=== PATIENT | male | born 1935 | race Caucasian/White ===

== ENCOUNTER 2017-04-23 16:25 | Emergency (ER) | payer MEDICARE, BC ==
[2017-04-23 16:49] VITALS: BP 164/99
--- NOTE | 2017-04-23 17:14 | EDM.PDOC ---
ED HPI GENERAL MEDICAL PROBLEM - General Chief Complaint: Upper Extremity Injury/Pain Stated Complaint: SMASHED HAND IN GARAGE DOOR Time Seen by Provider: 04/23/17 17:08 Source of Information: Reports: Patient, Family History Limitations: Reports: No Limitations - History of Present Illness INITIAL COMMENTS - FREE TEXT/NARRATIVE: Smashed his hand in the garage door yesterday about 10am crushing it under the pull down door. Was seen in the walk in clinic. No labs or xray done at that time. Does take coumadin. Hand with increasing pain and swelling today. Rates pain a 10 at times. Did try to wrap it and did apply ice. Onset: Gradual Onset Date: 04/22/17 Onset Time: 10:00 Duration: Getting Worse Location: Reports: Upper Extremity, Left Quality: Reports: Ache, Throbbing Severity: Moderate Improves with: Reports: Cold Therapy Worsens with: Reports: Movement Context: Reports: Trauma Associated Symptoms: Reports: No Other Symptoms left;hand Pain Score (Numeric/FACES): 6 - Related Data Allergies Allergy/AdvReac Type Severity Reaction Status Date / Time codeine Allergy Cannot Verified 06/07/14 07:53 Remember lisinopril Allergy Cannot Verified 06/07/14 07:53 Remember zolpidem tartrate Allergy Confusion Verified 02/12/16 09:43 [From Amy] Home Meds: Home Meds ALPRAZolam [Alprazolam] 0.25 mg PO DAILY 04/23/17 [History] Latanoprost [Latanoprost] 1 drop EYERT DAILY 04/23/17 [History] Losartan [Cozaar] 50 mg PO BEDTIME 04/23/17 [History] Metoprolol Tartrate 100 mg PO DAILY 04/23/17 [History] Timolol [Betimol 0.5% Ophth Soln] 1 drop EYERT DAILY 04/23/17 [History] Warfarin Sodium [Coumadin] 4.5 mg PO ASDIRECTED 04/23/17 [History] Warfarin [Coumadin] 3 mg PO ASDIRECTED 04/23/17 [History] traZODone 50 mg PO BEDTIME 04/23/17 [History] Past Medical History HEENT History: Reports: Head, Impaired Vision Cardiovascular History: Reports: High Cholesterol, Hypertension Respiratory History: Reports: SOB - Past Surgical History HEENT Surgical History: Reports: Tonsillectomy Musculoskeletal Surgical History: Reports: Knee Replacement Social & Family History - Tobacco Use Smoking Status *Q: Never Smoker - Caffeine Use Caffeine Use: Reports: Coffee - Recreational Drug Use Recreational Drug Use: No Review of Systems - Review of Systems Review Of Systems: See Below Constitutional: Reports: No Symptoms Ears: Reports: No Symptoms Nose: Reports: No Symptoms Mouth/Throat: Reports: No Symptoms Respiratory: Reports: No Symptoms Cardiovascular: Reports: No Symptoms Skin: Reports: Bruising (from left mid forearm down to finger tips), Other ( swelling to left hand) ED EXAM, GENERAL - Physical Exam Exam: See Below Exam Limited By: No Limitations General Appearance: Alert Respiratory/Chest: No Respiratory Distress, Lungs Clear, Normal Breath Sounds, No Accessory Muscle Use, Chest Non-Tender Cardiovascular: Normal Peripheral Pulses, Regular Rate, Rhythm, No Edema, No Gallop, No JVD, No Murmur, No Rub Extremities: Joint Swelling (left hand very swollen from blood pooling ), Limited Range of Motion Neurological: Alert, Oriented, CN II-XII Intact, Normal Cognition, Normal Gait, Normal Reflexes, No Motor/Sensory Deficits Skin Exam: Ecchymosis (bruising from mid forearm to finger tips) Course - Vital Signs Last Recorded V/S: Last Vital Signs Temp 98.7 F 04/23/17 16:47 Pulse 56 L 04/23/17 16:47 Resp 16 04/23/17 16:47 BP 164/99 H 04/23/17 16:47 Pulse Ox 97 04/23/17 16:47 - Orders/Labs/Meds Orders: Active Orders 24 hr Category Date Time Status Hand Comp Min 3V Lt [CR] Stat Exams 04/23/17 17:13 Taken Labs: Laboratory Tests 04/23/17 04/23/17 Range/Units 17:23 17:23 WBC 8.3 (4.5-11.0) K/uL RBC 4.45 (4.30-5.90) M/uL Hgb 13.8 (12.0-15.0) g/dL Hct 41.6 (40.0-54.0) % MCV 94 (80-98) fL MCH 31 (27-31) pg MCHC 33 (32-36) % Plt Count 151 (150-400) K/uL Neut % (Auto) 58 (36-66) % Lymph % (Auto) 32 (24-44) % [place] % (Auto) 8 H (2-6) % Eos % (Auto) 2 (2-4) % Baso % (Auto) 1 (0-1) % PT 52.1 H (9.5-12.0) sec INR 4.57 H* (0.80-1.20) Meds: Medications Discontinued Medications Generic Name Dose Route Start Last Admin Trade Name Hola PRN Reason Stop Dose Admin Bacitracin 1 dose 04/23/17 17:48 Bacitracin Oint 1 Gm TOP 04/23/17 17:49 ONETIME ONE Departure - Departure Time of Disposition: 17:53 Disposition: Home, Self-Care 01 Clinical Impression: Traumatic hematoma of left hand Qualifiers: Encounter type: subsequent encounter Qualified Code(s): S60.222D - Contusion of left hand, subsequent encounter - Discharge Information Instructions: Crush Injury, Fingers or Toes, [id number] Referrals: Art Stover MD [Primary Care Provider] - Forms: ED Department Discharge Additional Instructions: CBC WNL. INR 4.57. Xray without fracture. Pt reassured. Encouraged ice, elevation and compression as tolerated. Small wound cleaned and dressed with bacitracin today. Keep small scabbed area clean and apply bacitracin as needed. Rx for Hydrocodone 5/325 prn given. Please hold coumadin and repeat INR on Tuesday. Pt does have followup appointment with primary care on Tuesday. - Problem List & Annotations (1) Traumatic hematoma of left hand SNOMED Code(s): 3348019 Code(s): S60.222A - CONTUSION OF LEFT HAND, INITIAL ENCOUNTER Status: Acute Priority: Medium Current Visit: Yes Qualifiers: Encounter type: subsequent encounter Qualified Code(s): S60.222D - Contusion of left hand, subsequent encounter - Problem List Review Problem List Initiated/Reviewed/Updated: Yes - My Orders Last 24 Hours: My Active Orders 04/23/17 17:13 Hand Comp Min 3V Lt [CR] Stat - Assessment/Plan Last 24 Hours: My Active Orders 04/23/17 17:13 Hand Comp Min 3V Lt [CR] Stat
[2017-04-23] MEDS ORDERED: Bacitracin Oint 1 GM U/D Packet TOP ONE (17:48)
--- NOTE | 2017-04-25 09:25 | CR ---
Hand Comp Min 3V Lt INDICATION: crush injury to left hand on 04/22 FINDINGS: No acute fracture. Scattered degenerative changes most marked at the first CMC and third M CP joints. Chondrocalcinosis of the TFCC. Soft tissue swelling overlying the dorsum of the left.
== END 2017-04-23 18:20 | disposition home or self-care (01) ==
LOC: JP.ED 16:25
DX: S60.222D Contusion of left hand, subsequent encounter (principal); I10 Essential (primary) hypertension; E78.00 Pure hypercholesterolemia, unspecified; Z96.659 Presence of unspecified artificial knee joint; Z98.890 Other specified postprocedural states; Z79.01 Long term (current) use of anticoagulants; Z79.899 Other long term (current) drug therapy; Z88.5 Allergy status to narcotic agent; Z88.8 Allergy status to other drugs, medicaments and biological substances; W23.0XXD Caught, crushed, jammed, or pinched between moving objects, subsequent encounter
CPT/HCPCS: 36415; 73130-26-LT; 73130-LT; 85025; 85610; 99282; 99283

== ENCOUNTER 2017-09-24 13:34 | Emergency (ER) | payer MEDICARE, BC ==
--- NOTE | 2017-09-24 14:42 | EDM.PDOC ---
ED HPI GENERAL MEDICAL PROBLEM - General Chief Complaint: Gastrointestinal Problem Stated Complaint: NO STOOLS AND BLADDER TROUBLE Time Seen by Provider: 09/24/17 14:36 Source of Information: Reports: Patient, RN Notes Reviewed History Limitations: Reports: No Limitations - History of Present Illness INITIAL COMMENTS - FREE TEXT/NARRATIVE: 82-year-old gentleman presents to the emergency department today with complaint of abdominal pain, he states his biggest issue is that he has not had a bowel movement for 6 days and he is wondering if he did help with his constipation Lower Abdomen Pain Score (Numeric/FACES): 2 - Related Data Allergies Allergy/AdvReac Type Severity Reaction Status Date / Time codeine Allergy Cannot Verified 09/24/17 14:00 Remember lisinopril Allergy Cannot Verified 09/24/17 14:00 Remember zolpidem tartrate Allergy Confusion Verified 09/24/17 14:00 [From Amy] Home Meds: Home Meds ALPRAZolam [Alprazolam] 0.25 mg PO DAILY 04/23/17 [History] Latanoprost [Latanoprost] 1 drop EYERT DAILY 04/23/17 [History] Losartan [Cozaar] 50 mg PO BEDTIME 04/23/17 [History] Metoprolol Tartrate 100 mg PO DAILY 04/23/17 [History] Timolol [Betimol 0.5% Ophth Soln] 1 drop EYERT DAILY 04/23/17 [History] Warfarin Sodium [Coumadin] 4.5 mg PO ASDIRECTED 04/23/17 [History] Warfarin [Coumadin] 3 mg PO ASDIRECTED 04/23/17 [History] traZODone 50 mg PO BEDTIME 04/23/17 [History] Past Medical History HEENT History: Reports: Head, Impaired Vision Cardiovascular History: Reports: High Cholesterol, Hypertension Respiratory History: Reports: SOB Musculoskeletal History: Reports: Arthritis - Past Surgical History HEENT Surgical History: Reports: Tonsillectomy Musculoskeletal Surgical History: Reports: Knee Replacement Social & Family History - Tobacco Use Smoking Status *Q: Never Smoker - Caffeine Use Caffeine Use: Reports: Soda - Alcohol Use Days Per Week of Alcohol Use: 1 Number of Drinks Per Day: 1 Total Drinks Per Week: 1 - Recreational Drug Use Recreational Drug Use: No ED ROS GENERAL - Review of Systems Review Of Systems: See Below Constitutional: Reports: No Symptoms Respiratory: Reports: No Symptoms Cardiovascular: Reports: Dyspnea on Exertion GI/Abdominal: Reports: Abdominal Pain, Constipation : Reports: Urinary Retention ED EXAM, GI/ABD - Physical Exam Exam: See Below Exam Limited By: No Limitations General Appearance: Alert, WD/WN, No Apparent Distress Respiratory/Chest: No Respiratory Distress GI/Abdominal Exam: Normal Bowel Sounds, Soft, Non-Tender Course - Vital Signs Last Recorded V/S: Last Vital Signs Temp 97.3 F 09/24/17 13:58 Pulse 60 09/24/17 15:44 Resp 14 09/24/17 15:44 BP 148/90 H 09/24/17 15:44 Pulse Ox 96 09/24/17 15:44 - Orders/Labs/Meds Orders: Active Orders 24 hr Category Date Time Status Enema [RC] ASDIRECTED Care 09/24/17 14:40 Active Abdomen 1V Flat [CR] Stat Exams 09/24/17 14:40 Taken Departure - Departure Time of Disposition: 16:22 Disposition: Home, Self-Care 01 Condition: Good Clinical Impression: Functional constipation - Discharge Information Referrals: Art Stover MD [Primary Care Provider] - Forms: ED Department Discharge Additional Instructions: Recommend using a stool laxative such as MiraLAX which is [id number], Please followup with your primary care provider in 3-5 days if not better, please call return to the emergency department with worsening of symptoms. - My Orders Last 24 Hours: My Active Orders 09/24/17 14:40 Enema [RC] ASDIRECTED Abdomen 1V Flat [CR] Stat - Assessment/Plan Last 24 Hours: My Active Orders 09/24/17 14:40 Enema [RC] ASDIRECTED Abdomen 1V Flat [CR] Stat Plan: Assessment Acuity = acute Site and laterality = functional constipation Etiology = slow transit time Manifestations = none Location of injury = Home Lab values = plain film the abdomen shows large amount of stool, official read radiology is pending Plan He had good relief from the enema provided in emergency department recommend stool softeners at home follow-up with primary care 3-5 days for reevaluation if no improvement Patient was in agreement with the plan all questions were answered, they were instructed to return to the emergency department or call for worsening symptoms. This note was dictated using [email or web address]. voice recognition software please call with any questions.
[2017-09-24 15:45] VITALS: BP 148/90
--- NOTE | 2017-09-26 09:45 | CR ---
Abdomen 1V Flat INDICATION: pain FINDINGS: Nonspecific bowel gas pattern. Scattered stool and gas within the colon and rectum. Degener ative changes lumbar spine.
== END 2017-09-24 16:26 | disposition home or self-care (01) ==
LOC: JP.ED 13:34
DX: K59.04 Chronic idiopathic constipation (principal); Z88.5 Allergy status to narcotic agent; Z88.8 Allergy status to other drugs, medicaments and biological substances; Z79.899 Other long term (current) drug therapy; Z79.01 Long term (current) use of anticoagulants
CPT/HCPCS: 74000; 74000-26; 99283; 99284

== ENCOUNTER 2018-08-17 19:50 | Emergency (ER) | payer MEDICARE, BC ==
--- NOTE | 2018-08-17 21:00 | EDM.PDOC ---
ED HPI GENERAL MEDICAL PROBLEM - General Chief Complaint: Fever Stated Complaint: FEVER Time Seen by Provider: 08/17/18 20:36 Source of Information: Reports: Patient, Family, RN Notes Reviewed History Limitations: Reports: No Limitations - History of Present Illness INITIAL COMMENTS - FREE TEXT/NARRATIVE: 83-year-old gentleman presents emergency department today with complaint of fever and chills, he states this all started today he denies any sick contacts the only other symptoms he has is frequency with urination - Related Data Allergies Allergy/AdvReac Type Severity Reaction Status Date / Time codeine Allergy Cannot Verified 09/24/17 14:00 Remember lisinopril Allergy Cannot Verified 09/24/17 14:00 Remember zolpidem tartrate Allergy Confusion Verified 09/24/17 14:00 [From Amy] Home Meds: Home Meds ALPRAZolam [Alprazolam] 0.25 mg PO DAILY 04/23/17 [History] Losartan [Cozaar] 75 mg PO DAILY 04/23/17 [History] Warfarin Sodium [Coumadin] 4.5 mg PO ASDIRECTED 04/23/17 [History] Warfarin [Coumadin] 3 mg PO ASDIRECTED 04/23/17 [History] traZODone 25 mg PO BEDTIME 04/23/17 [History] Albuterol Sulfate [Proair Hfa] 8.5 gm IH PRN 08/17/18 [History] Esomeprazole Magnesium [Nexium] 40 mg PO DAILY 08/17/18 [History] Fluticasone Propionate [Flonase] 2 spray NASBOTH DAILY 08/17/18 [History] Metoprolol Succinate [Toprol XL 100mg] 100 mg PO DAILY 08/17/18 [History] Polyethylene Glycol 3350 [MiraLAX] 17 gm PO ASDIRECTED PRN 08/17/18 [History] Tamsulosin HCl [Flomax] 0.4 mg PO DAILY 08/17/18 [History] Past Medical History HEENT History: Reports: Head, Impaired Vision Cardiovascular History: Reports: High Cholesterol, Hypertension Respiratory History: Reports: SOB Genitourinary History: Reports: BPH Musculoskeletal History: Reports: Arthritis Dermatologic History: Reports: Other (See Below) Other Dermatologic History: open wound of auricle of right ear w/out complication, has appt w/ Dr. Tsang - Past Surgical History HEENT Surgical History: Reports: Tonsillectomy Musculoskeletal Surgical History: Reports: Knee Replacement Social & Family History - Tobacco Use Smoking Status *Q: Never Smoker Second Hand Smoke Exposure: No - Caffeine Use Caffeine Use: Reports: Coffee - Recreational Drug Use Recreational Drug Use: No ED ROS GENERAL - Review of Systems Review Of Systems: See Below Constitutional: Reports: Fever, Chills HEENT: Reports: No Symptoms Respiratory: Reports: No Symptoms Cardiovascular: Reports: No Symptoms GI/Abdominal: Reports: No Symptoms : Reports: Frequency, Urinary Retention Musculoskeletal: Reports: No Symptoms Skin: Reports: No Symptoms ED EXAM, GENERAL - Physical Exam Exam: See Below Free Text/Narrative:: General: Male, not in any distress, alert and oriented x3 HEENT: head is atraumatic normocephalic, eyes pupils equal round reactive to light, sclera clear no conjunctivitis appreciated. Ears tympanic membranes clear and escamilal landmarks and light reflex are present bilaterally canals are clear. Nose no septal deviation, nares are clear, no blood present. Mouth mucosa is moist and pink no erythema or exudate noted in soft palate, tongue is midline uvula is midline, dentition is intact. Neck: Supple no thyromegaly no tracheal deviation. Nodes: Cervical nodes subclavicular nodes nontender no palpable lymphadenopathy noted. Lungs: clear to auscultation bilaterally with symmetrical respirations, no adventitious noise appreciated. CV: Regular rate and rhythm S1 and S2 appreciated no murmurs rubs or gallops noted. Abdomen: Soft, nontender, no palpable masses or organomegaly appreciated, no distention no guarding bowel sounds are present, . Neuro: Cranial nerves II through XII grossly intact Skin: Warm and dry, intact Extremities: No lower extremity edema appreciated, Course - Vital Signs Last Recorded V/S: Last Vital Signs Temp 100.8 F H 08/17/18 22:19 Pulse 80 08/17/18 22:19 Resp 12 08/17/18 22:19 BP 130/88 08/17/18 22:19 Pulse Ox 94 L 08/17/18 22:19 - Orders/Labs/Meds Labs: Laboratory Tests 08/17/18 08/17/18 08/17/18 Range/Units 20:44 20:44 20:44 WBC 12.8 H (4.5-11.0) K/uL RBC 4.45 (4.30-5.90) M/uL Hgb 14.0 (12.0-15.0) g/dL Hct 41.8 (40.0-54.0) % MCV 94 (80-98) fL MCH 32 H (27-31) pg MCHC 34 (32-36) % Plt Count 117 L (150-400) K/uL Neut % (Auto) 83 H (36-66) % Lymph % (Auto) 10 L (24-44) % [place] % (Auto) 7 H (2-6) % Eos % (Auto) 0 L (2-4) % Baso % (Auto) 0 (0-1) % PT (9.5-12.0) sec INR (0.80-1.20) Sodium 139 L (140-148) mmol/L Potassium 3.7 (3.6-5.2) mmol/L Chloride 103 (100-108) mmol/L Carbon Dioxide 26 (21-32) mmol/L Anion Gap 13.7 (5.0-14.0) mmol/L BUN 15 (7-18) mg/dL Creatinine 0.9 (0.8-1.3) mg/dL Est Cr Clr Drug Dosing TNP Estimated GFR (MDRD) > 60 (>60) Glucose 134 H (74-106) mg/dL Lactic Acid 1.6 (0.4-2.0) mmol/L Calcium 8.2 L (8.5-10.1) mg/dL Total Bilirubin 1.0 (0.2-1.0) mg/dL AST 20 (15-37) U/L ALT 23 (12-78) U/L Alkaline Phosphatase 91 (46-116) U/L Total Protein 7.1 (6.4-8.2) g/dL Albumin 3.4 (3.4-5.0) g/dL Globulin 3.7 H (2.3-3.5) g/dL Albumin/Globulin Ratio 0.9 L (1.2-2.2) Urine Color Urine Appearance Urine pH (4.5-8.0) Ur Specific [place] (1.008-1.030) Urine Protein (NEGATIVE) mg/dL Urine Glucose (UA) (NEGATIVE) mg/dL Urine Ketones (NEGATIVE) mg/dL Urine Occult Blood (NEGATIVE) Urine Nitrite (NEGAITVE) Urine Bilirubin (NEGATIVE) Urine Urobilinogen (NORMAL) mg/dL Ur Leukocyte Esterase (NEGATIVE) Urine RBC (0-5) Urine WBC (0-5) Ur Epithelial Cells Amorphous Sediment Urine Bacteria Urine Mucus 08/17/18 08/17/18 Range/Units 21:17 22:08 WBC (4.5-11.0) K/uL RBC (4.30-5.90) M/uL Hgb (12.0-15.0) g/dL Hct (40.0-54.0) % MCV (80-98) fL MCH (27-31) pg MCHC (32-36) % Plt Count (150-400) K/uL Neut % (Auto) (36-66) % Lymph % (Auto) (24-44) % [place] % (Auto) (2-6) % Eos % (Auto) (2-4) % Baso % (Auto) (0-1) % PT 21.3 H (9.5-12.0) sec INR 2.01 H D (0.80-1.20) Sodium (140-148) mmol/L Potassium (3.6-5.2) mmol/L Chloride (100-108) mmol/L Carbon Dioxide (21-32) mmol/L Anion Gap (5.0-14.0) mmol/L BUN (7-18) mg/dL Creatinine (0.8-1.3) mg/dL Est Cr Clr Drug Dosing Estimated GFR (MDRD) (>60) Glucose (74-106) mg/dL Lactic Acid (0.4-2.0) mmol/L Calcium (8.5-10.1) mg/dL Total Bilirubin (0.2-1.0) mg/dL AST (15-37) U/L ALT (12-78) U/L Alkaline Phosphatase (46-116) U/L Total Protein (6.4-8.2) g/dL Albumin (3.4-5.0) g/dL Globulin (2.3-3.5) g/dL Albumin/Globulin Ratio (1.2-2.2) Urine Color Yellow Urine Appearance Clear Urine pH 5.0 (4.5-8.0) Ur Specific [place] 1.010 (1.008-1.030) Urine Protein Negative (NEGATIVE) mg/dL Urine Glucose (UA) Normal (NEGATIVE) mg/dL Urine Ketones Negative (NEGATIVE) mg/dL Urine Occult Blood Moderate (NEGATIVE) Urine Nitrite Negative (NEGAITVE) Urine Bilirubin Negative (NEGATIVE) Urine Urobilinogen Normal (NORMAL) mg/dL Ur Leukocyte Esterase Negative (NEGATIVE) Urine RBC 5-10 H (0-5) Urine WBC Not seen (0-5) Ur Epithelial Cells Not seen Amorphous Sediment Not seen Urine Bacteria Rare Urine Mucus Rare Meds: Medications Discontinued Medications Generic Name Dose Route Start Last Admin Trade Name Freq PRN Reason Stop Dose Admin Acetaminophen 650 mg 08/17/18 21:46 08/17/18 21:59 Tylenol PO 08/17/18 21:47 650 mg NOW ONE Administration Ibuprofen 600 mg 08/17/18 21:17 08/17/18 22:11 Motrin PO 08/17/18 21:18 Not Given ONETIME ONE Departure - Departure Time of Disposition: 22:58 Disposition: Home, Self-Care 01 Condition: Good Clinical Impression: Viral syndrome - Discharge Information Referrals: Art Stover MD [Primary Care Provider] - Forms: ED Department Discharge Additional Instructions: Please followup with your primary care provider in 3-5 days if not better, please call return to the emergency department with worsening of symptoms. - Assessment/Plan Plan: assessment viral syndrome Plan symptomatic care
[2018-08-17] MEDS ORDERED: Ibuprofen 600 MG Tab PO ONE (21:17)
[2018-08-17] MEDS ORDERED: Acetaminophen 325 MG Tab PO ONE (21:46)
[2018-08-17 22:20] VITALS: BP 130/88
== END 2018-08-17 23:00 | disposition home or self-care (01) ==
LOC: JP.ED 19:50
DX: B34.9 Viral infection, unspecified (principal); E78.00 Pure hypercholesterolemia, unspecified; I10 Essential (primary) hypertension; Z88.5 Allergy status to narcotic agent; Z88.8 Allergy status to other drugs, medicaments and biological substances; Z79.899 Other long term (current) drug therapy; Z79.01 Long term (current) use of anticoagulants
CPT/HCPCS: 36415; 80053; 81001; 83605; 85025; 85610; 87804; 99284; A9270

== ENCOUNTER 2019-01-30 10:48 | Emergency (ER) | payer MEDICARE, BC ==
[2019-01-30 11:21] VITALS: BP 152/77
--- NOTE | 2019-01-30 11:57 | EDM.PDOC ---
<Rae Martinez - Last Filed: 01/30/19 12:15> ED HPI GENERAL MEDICAL PROBLEM - General Chief Complaint: Respiratory Problem Stated Complaint: SHORT OF BREATH,WEAKNESS Time Seen by Provider: 01/30/19 11:45 Source of Information: Reports: Patient, Significant Other History Limitations: Reports: No Limitations - History of Present Illness INITIAL COMMENTS - FREE TEXT/NARRATIVE: Rojelio Mesa is an 83 year old male who reports to the ED, accompanied by his for increased shortness of breath and weakness. His states that she wanted him to be evaluated to due his balance disturbance and weakness with the ice outside and his risk of falling. She states this morning he was lethargic and it brought her concerns. He has been going to PT for treatment of vertigo which he says has been improving his symptoms. He states that he does not necessarily feel an increased shortness of breath or weakness. He reports chronic constipation but denies a dark stool or blood. Further symptoms are denied at this time. - Related Data Allergies Allergy/AdvReac Type Severity Reaction Status Date / Time codeine Allergy Cannot Verified 01/30/19 11:19 Remember lisinopril Allergy Cannot Verified 01/30/19 11:19 Remember zolpidem tartrate Allergy Confusion Verified 01/30/19 11:19 [From Amy] Home Meds: Home Meds ALPRAZolam [Alprazolam] 0.25 mg PO DAILY 04/23/17 [History] Losartan [Cozaar] 75 mg PO DAILY 04/23/17 [History] Warfarin Sodium [Coumadin] 4.5 mg PO ASDIRECTED 04/23/17 [History] Warfarin [Coumadin] 3 mg PO ASDIRECTED 04/23/17 [History] traZODone 25 mg PO BEDTIME 04/23/17 [History] Albuterol Sulfate [Proair Hfa] 8.5 gm IH PRN 08/17/18 [History] Esomeprazole Magnesium [Nexium] 40 mg PO DAILY 08/17/18 [History] Fluticasone Propionate [Flonase] 2 spray NASBOTH DAILY 08/17/18 [History] Metoprolol Succinate [Toprol XL 100mg] 100 mg PO DAILY 08/17/18 [History] Polyethylene Glycol 3350 [MiraLAX] 17 gm PO ASDIRECTED PRN 08/17/18 [History] Tamsulosin HCl [Flomax] 0.4 mg PO DAILY 08/17/18 [History] Past Medical History HEENT History: Reports: Head, Impaired Vision Cardiovascular History: Reports: Afib, High Cholesterol, Hypertension Respiratory History: Reports: SOB Genitourinary History: Reports: BPH Musculoskeletal History: Reports: Arthritis Dermatologic History: Reports: Other (See Below) Other Dermatologic History: open wound of auricle of right ear w/out complication, has appt w/ Dr. Tsang - Past Surgical History HEENT Surgical History: Reports: Tonsillectomy Musculoskeletal Surgical History: Reports: Knee Replacement Social & Family History - Tobacco Use Smoking Status *Q: Never Smoker - Caffeine Use Caffeine Use: Reports: Coffee - Recreational Drug Use Recreational Drug Use: No ED ROS GENERAL - Review of Systems Review Of Systems: ROS reveals no pertinent complaints other than HPI. ED EXAM, GENERAL - Physical Exam Exam: See Below Exam Limited By: No Limitations General Appearance: Alert, WD/WN, No Apparent Distress Ears: Normal External Exam Nose: Normal Inspection, Normal Mucosa Throat/Mouth: Normal Inspection, Normal Lips, Normal Gums, Normal Oropharynx, No Airway Compromise Head: Atraumatic, Normocephalic Neck: Normal Inspection, Supple, Non-Tender Respiratory/Chest: No Respiratory Distress, Lungs Clear, Normal Breath Sounds, No Accessory Muscle Use Cardiovascular: Systolic Murmur, Other (Atrial Fibrillation ) GI/Abdominal: Soft, Non-Tender, No Distention Extremities: Normal Inspection, Normal Range of Motion, Other (Mild swelling on left foot which states has been present since his foot injury ) Neurological: Alert, Oriented, Normal Cognition, No Motor/Sensory Deficits Psychiatric: Normal Affect, Normal Mood Skin Exam: Warm, Intact, Normal Color, No Rash Course - Vital Signs Last Recorded V/S: Last Vital Signs Temp 95.7 F 01/30/19 11:26 Pulse 51 L 01/30/19 11:26 Resp 16 01/30/19 11:26 BP 152/77 H 01/30/19 11:26 Pulse Ox 95 01/30/19 11:26 Departure - Departure Time of Disposition: 12:15 Disposition: Home, Self-Care 01 Clinical Impression: Weakness, Dizziness - Discharge Information Instructions: Weakness, [id number] Referrals: PCP,None [Primary Care Provider] - Forms: ED Department Discharge Care Plan Goals: Continue any current medications, activity and diet as tolerated. Consider rechecking in 3-4 days if not improving satisfactorily or anytime sooner if worsening or concerns. Watch out for the ice <Art Jesus - Last Filed: 01/30/19 13:19> Departure - Departure Condition: Good
== END 2019-01-30 12:22 | disposition home or self-care (01) ==
LOC: JP.ED 10:48
DX: R53.1 Weakness (principal); R42 Dizziness and giddiness; R06.02 Shortness of breath; I48.91 Unspecified atrial fibrillation; I10 Essential (primary) hypertension; E78.00 Pure hypercholesterolemia, unspecified; Z79.899 Other long term (current) drug therapy; Z88.5 Allergy status to narcotic agent; Z88.8 Allergy status to other drugs, medicaments and biological substances
CPT/HCPCS: 99282; 99284

== ENCOUNTER 2019-02-18 11:46 | Emergency (ER) | payer MEDICARE, BC ==
[2019-02-18 12:35] VITALS: BP 144/75
--- NOTE | 2019-02-18 13:03 | EDM.PDOC ---
ED HPI GENERAL MEDICAL PROBLEM - General Chief Complaint: General Stated Complaint: DIZZY Time Seen by Provider: 02/18/19 12:50 Source of Information: Reports: Patient, Family History Limitations: Reports: No Limitations - History of Present Illness Onset: Gradual (over past three to four months) Quality: Reports: Stabbing (just intermittent) Severity: Mild Improves with: Reports: None Worsens with: Reports: Movement ( states is more unstable on his feet and she worries that he seems more 'tippy' outside) Associated Symptoms: Reports: No Other Symptoms - Related Data Allergies Allergy/AdvReac Type Severity Reaction Status Date / Time codeine Allergy Cannot Verified 01/30/19 11:19 Remember lisinopril Allergy Cannot Verified 01/30/19 11:19 Remember zolpidem tartrate Allergy Confusion Verified 01/30/19 11:19 [From Amy] Home Meds: Home Meds ALPRAZolam [Alprazolam] 0.25 mg PO DAILY 04/23/17 [History] Losartan [Cozaar] 75 mg PO DAILY 04/23/17 [History] Warfarin Sodium [Coumadin] 4.5 mg PO ASDIRECTED 04/23/17 [History] Warfarin [Coumadin] 3 mg PO ASDIRECTED 04/23/17 [History] traZODone 25 mg PO BEDTIME 04/23/17 [History] Albuterol Sulfate [Proair Hfa] 8.5 gm IH PRN 08/17/18 [History] Esomeprazole Magnesium [Nexium] 40 mg PO DAILY 08/17/18 [History] Fluticasone Propionate [Flonase] 2 spray NASBOTH DAILY 08/17/18 [History] Metoprolol Succinate [Toprol XL 100mg] 100 mg PO DAILY 08/17/18 [History] Polyethylene Glycol 3350 [MiraLAX] 17 gm PO ASDIRECTED PRN 08/17/18 [History] Tamsulosin HCl [Flomax] 0.4 mg PO DAILY 08/17/18 [History] Past Medical History HEENT History: Reports: Head, Impaired Vision Cardiovascular History: Reports: Afib, High Cholesterol, Hypertension Respiratory History: Reports: SOB Genitourinary History: Reports: BPH Musculoskeletal History: Reports: Arthritis Dermatologic History: Reports: Other (See Below) Other Dermatologic History: auricle of right ear w/out complication, has appt w / Dr. Tsang - Past Surgical History HEENT Surgical History: Reports: Tonsillectomy Musculoskeletal Surgical History: Reports: Knee Replacement Social & Family History - Tobacco Use Smoking Status *Q: Never Smoker - Caffeine Use Caffeine Use: Reports: Coffee - Recreational Drug Use Recreational Drug Use: No ED ROS GENERAL - Review of Systems Review Of Systems: See Below Constitutional: Reports: Chills ( states that he has teeth chattering chills of last few weeks) HEENT: Reports: No Symptoms Respiratory: Reports: No Symptoms (denies shortness of breath) Cardiovascular: Reports: No Symptoms Endocrine: Reports: No Symptoms GI/Abdominal: Reports: Constipation (takes miralax daily per ) : Reports: No Symptoms Musculoskeletal: Reports: Other (more unstable, even in house (per )) Skin: Reports: No Symptoms Neurological: Reports: Dizziness (no change in dizziness, being treated in outpatient therapy) Psychiatric: Reports: No Symptoms Hematologic/Lymphatic: Reports: No Symptoms, Other (followed with Coumadin clinic) Immunologic: Reports: No Symptoms ED EXAM, GENERAL - Physical Exam Exam: See Below Exam Limited By: No Limitations General Appearance: Alert, WD/WN, No Apparent Distress Eye Exam: Bilateral Eye: EOMI, PERRL Ears: Normal External Exam, Normal Canal, Hearing Grossly Normal, Normal TMs Nose: Normal Inspection, Normal Mucosa, No Blood Throat/Mouth: Normal Inspection, Normal Teeth, No Airway Compromise Head: Atraumatic, Normocephalic Neck: Normal Inspection, Non-Tender Respiratory/Chest: No Respiratory Distress, Lungs Clear, Normal Breath Sounds, No Accessory Muscle Use, Chest Non-Tender Cardiovascular: Normal Peripheral Pulses, No JVD, No Murmur, No Rub Peripheral Pulses: 1+: Posterior Tibial (L), Posterior Tibial (R) GI/Abdominal: Normal Bowel Sounds, Soft, Non-Tender, No Distention, No Abnormal Bruit Back Exam: Normal Inspection, Full Range of Motion Extremities: Normal Inspection, Normal Range of Motion, Non-Tender, Other ( pedal edema left ankle) Neurological: Alert, Oriented, Normal Cognition Psychiatric: Normal Affect, Normal Mood Skin Exam: Warm, Dry, Intact, Normal Color, No Rash Lymphatic: No Adenopathy Course - Vital Signs Last Recorded V/S: Last Vital Signs Temp 35.8 C 04/07/19 12:08 Pulse 61 02/18/19 12:08 Resp 16 02/18/19 12:08 BP 144/75 H 02/18/19 12:08 Pulse Ox 96 02/18/19 12:08 - Orders/Labs/Meds Orders: CBC, TSH, UA ordered Labs: Laboratory Tests 02/18/19 02/18/19 02/18/19 Range/Units 13:06 13:06 13:30 WBC 16.0 H (4.5-11.0) K/uL RBC 4.16 L (4.30-5.90) M/uL Hgb 12.7 (12.0-15.0) g/dL Hct 38.6 L (40.0-54.0) % MCV 93 (80-98) fL MCH 31 (27-31) pg MCHC 33 (32-36) % Plt Count 144 L (150-400) K/uL Sodium 137 L (140-148) mmol/L Potassium 3.9 (3.6-5.2) mmol/L Chloride 102 (100-108) mmol/L Carbon Dioxide 29 (21-32) mmol/L Anion Gap 9.9 (5.0-14.0) mmol/L BUN 13 (7-18) mg/dL Creatinine 0.9 (0.8-1.3) mg/dL Est Cr Clr Drug Dosing 65.07 mL/min Estimated GFR (MDRD) > 60 (>60) Glucose 106 (74-106) mg/dL Calcium 8.7 (8.5-10.1) mg/dL TSH, Ultra Sensitive 2.509 (0.358-3.740) uIU/mL Urine Color Yellow Urine Appearance Clear Urine pH 7.0 (4.5-8.0) Ur Specific [place] 1.005 L (1.008-1.030) Urine Protein Negative (NEGATIVE) mg/dL Urine Glucose (UA) Normal (NEGATIVE) mg/dL Urine Ketones Negative (NEGATIVE) mg/dL Urine Occult Blood Trace (NEGATIVE) Urine Nitrite Negative (NEGAITVE) Urine Bilirubin Negative (NEGATIVE) Urine Urobilinogen Normal (NORMAL) mg/dL Ur Leukocyte Esterase Negative (NEGATIVE) Urine RBC 0-5 (0-5) Urine WBC Not seen (0-5) Ur Epithelial Cells Not seen Amorphous Sediment Few Urine Bacteria Not seen Urine Mucus Not seen Departure - Departure Time of Disposition: 14:30 Disposition: Home, Self-Care 01 Condition: Good Clinical Impression: Weakness, Dizziness - Discharge Information *PRESCRIPTION DRUG MONITORING PROGRAM REVIEWED*: No *COPY OF PRESCRIPTION DRUG MONITORING REPORT IN PATIENT BARBIE: No Instructions: Weakness, [id number] Referrals: Art Stover MD [Primary Care Provider] - Forms: ED Department Discharge Additional Instructions: Discussed with patient and that there are no acute findings to support increased WBC count, urinalysis normal and chest exray showed no pleural effusion or consolidation. We suggest the increased count warrants further follow up with PCP in the next day or two. To return to ED if experiencing shortness of breath or acute situation.
--- NOTE | 2019-02-18 14:23 | CRLCR ---
INDICATION: Fever TECHNIQUE: Chest 2 views. COMPARISON: None FINDINGS: Cardiomediastinal silhouette: Top-normal size heart. Tortuous thoracic aorta, with atherosclerotic calcification of the aortic arch. Lungs and pleural spaces: Linear subsegmental atelectasis at the left lung base. No focal consolidation. No pulmonary edema. No pleural effusion or pneumothorax. Bones and soft tissues: Within normal limits. IMPRESSION: No acute pulmonary process. Dictated by Allison Gaona MD @ 02/18/2019 2:22:27 PM Dictated by: Allison Gaona MD @ 02/18/2019 14:22:33 (Electronically Signed)
== END 2019-02-18 14:45 | disposition home or self-care (01) ==
LOC: JP.ED 11:46
DX: R53.1 Weakness (principal); R42 Dizziness and giddiness; I10 Essential (primary) hypertension; E78.00 Pure hypercholesterolemia, unspecified; I48.91 Unspecified atrial fibrillation; Z79.899 Other long term (current) drug therapy; Z88.5 Allergy status to narcotic agent; Z88.8 Allergy status to other drugs, medicaments and biological substances
CPT/HCPCS: 36415; 71046; 80048; 81001; 84443; 85027; 99284-25

== ENCOUNTER 2019-02-19 06:15 | Observation (INO) | payer MEDICARE, BC ==
--- NOTE | 2019-02-19 06:48 | EDM.PDOC ---
<Art Jesus - Last Filed: 02/19/19 07:01> ED HPI GENERAL MEDICAL PROBLEM - General Chief Complaint: Lower Extremity Injury/Pain Stated Complaint: FALL Time Seen by Provider: 02/19/19 06:30 Source of Information: Reports: Patient, EMS, Family History Limitations: Reports: No Limitations - History of Present Illness INITIAL COMMENTS - FREE TEXT/NARRATIVE: 83-year-old male with chronic vertigo and a recent right foot or ankle injury was in the emergency room yesterday for 4 hours and had an extensive workup for weakness. He was eventually sent home, but is not doing well. The combination of weakness, dizziness, and right foot pain precludes him from walking or getting around the house. This morning he was standing and holding onto the wall when he was unable to take another step and just collapsed to the ground. He couldn't get up so she called an ambulance. She just doesn't know how she can take him home. Onset: Unknown/Unsure Location: Reports: Lower Extremity, Right Worsens with: Reports: Other (Weightbearing, walking), Movement Associated Symptoms: Reports: Weakness, Other (Dizziness) right ankle/foot Pain Score (Numeric/FACES): 4 - Related Data Allergies Allergy/AdvReac Type Severity Reaction Status Date / Time codeine Allergy Cannot Verified 02/19/19 06:21 Remember lisinopril Allergy Cannot Verified 02/19/19 06:21 Remember zolpidem tartrate Allergy Confusion Verified 02/19/19 06:21 [From Amy] Home Meds: Home Meds ALPRAZolam [Alprazolam] 0.25 mg PO DAILY 04/23/17 [History] Losartan [Cozaar] 75 mg PO DAILY 04/23/17 [History] Warfarin Sodium [Coumadin] 4.5 mg PO ASDIRECTED 04/23/17 [History] Warfarin [Coumadin] 3 mg PO ASDIRECTED 04/23/17 [History] traZODone 50 mg PO BEDTIME 04/23/17 [History] Albuterol Sulfate [Proair Hfa] 1 - 2 puff IH Q4H PRN 08/17/18 [History] Fluticasone Propionate [Flonase] 2 spray NASBOTH DAILY 08/17/18 [History] Metoprolol Succinate [Toprol XL 100mg] 100 mg PO DAILY 08/17/18 [History] Polyethylene Glycol 3350 [MiraLAX] 17 gm PO ASDIRECTED PRN 08/17/18 [History] Tamsulosin HCl [Flomax] 0.4 mg PO DAILY 08/17/18 [History] Past Medical History HEENT History: Reports: Head, Impaired Vision Cardiovascular History: Reports: Afib, High Cholesterol, Hypertension Respiratory History: Reports: SOB Genitourinary History: Reports: BPH Musculoskeletal History: Reports: Arthritis Dermatologic History: Reports: Other (See Below) Other Dermatologic History: auricle of right ear w/out complication, has appt w / Dr. Tsang - Past Surgical History HEENT Surgical History: Reports: Tonsillectomy Musculoskeletal Surgical History: Reports: Knee Replacement Social & Family History - Tobacco Use Smoking Status *Q: Never Smoker - Caffeine Use Caffeine Use: Reports: Coffee - Recreational Drug Use Recreational Drug Use: No Review of Systems - Review of Systems Review Of Systems: See Below Constitutional: Denies: Fever Eyes: Reports: No Symptoms Ears: Reports: Other (Hard of hearing) Respiratory: Reports: No Symptoms Cardiovascular: Reports: No Symptoms GI/Abdominal: Reports: No Symptoms Musculoskeletal: Reports: Foot Pain Skin: Reports: Bruising (Tends to bruise easy) Neurological: Denies: Headache Psychiatric: Reports: No Symptoms ED EXAM, GENERAL - Physical Exam Exam: See Below Exam Limited By: No Limitations General Appearance: Alert, No Apparent Distress Eye Exam: Bilateral Eye: EOMI Neck: Supple, Non-Tender Respiratory/Chest: No Respiratory Distress Cardiovascular: Irregularly Irregular GI/Abdominal: Soft, Non-Tender Extremities: Other (Right foot has some mild to moderate swelling over the top of the foot near the ankle, and tenderness to palpation there is no crepitus or significant deformity) Skin Exam: Warm, Dry Course - Vital Signs Last Recorded V/S: Last Vital Signs Temp 37.6 C 02/19/19 06:18 Pulse 77 02/19/19 09:29 Resp 20 02/19/19 06:18 BP 161/99 H 02/19/19 09:29 Pulse Ox 94 L 02/19/19 06:18 - Orders/Labs/Meds Orders: Active Orders 24 hr Category Date Time Status Sodium Chloride 0.9% [Normal Saline] 1,000 ml Med 02/19/19 09:00 Active IV ASDIRECTED Medication Orders Sodium Chloride (Normal Saline) 1,000 mls @ 999 mls/hr IV ASDIRECTED JOHN Last Admin: 02/19/19 09:34 Dose: 999 mls/hr Labs: Laboratory Tests 02/19/19 02/19/19 02/19/19 Range/Units 07:44 07:44 07:50 WBC 10.2 (4.5-11.0) K/uL RBC 4.27 L (4.30-5.90) M/uL Hgb 13.1 (12.0-15.0) g/dL Hct 40.1 (40.0-54.0) % MCV 94 (80-98) fL MCH 31 (27-31) pg MCHC 33 (32-36) % Plt Count 125 L (150-400) K/uL Neut % (Auto) 75 H (36-66) % Lymph % (Auto) 14 L (24-44) % Davis % (Auto) 11 H (2-6) % Eos % (Auto) 0 L (2-4) % Baso % (Auto) 0 (0-1) % PT 23.7 H (9.5-12.0) sec INR 2.26 H (0.80-1.20) Sodium 139 L (140-148) mmol/L Potassium 3.7 (3.6-5.2) mmol/L Chloride 102 (100-108) mmol/L Carbon Dioxide 29 (21-32) mmol/L Anion Gap 11.7 (5.0-14.0) mmol/L BUN 15 (7-18) mg/dL Creatinine 0.9 (0.8-1.3) mg/dL Est Cr Clr Drug Dosing 65.07 mL/min Estimated GFR (MDRD) > 60 (>60) Glucose 110 H (74-106) mg/dL Uric Acid (3.5-7.2) mg/dL Calcium 8.9 (8.5-10.1) mg/dL Total Bilirubin 1.5 H (0.2-1.0) mg/dL AST 18 (15-37) U/L ALT 18 (12-78) U/L Alkaline Phosphatase 77 (46-116) U/L Total Protein 7.1 (6.4-8.2) g/dL Albumin 3.0 L (3.4-5.0) g/dL Globulin 4.1 H (2.3-3.5) g/dL Albumin/Globulin Ratio 0.7 L (1.2-2.2) Urine Color Urine Appearance Urine pH (4.5-8.0) Ur Specific [place] (1.008-1.030) Urine Protein (NEGATIVE) mg/dL Urine Glucose (UA) (NEGATIVE) mg/dL Urine Ketones (NEGATIVE) mg/dL Urine Occult Blood (NEGATIVE) Urine Nitrite (NEGAITVE) Urine Bilirubin (NEGATIVE) Urine Urobilinogen (NORMAL) mg/dL Ur Leukocyte Esterase (NEGATIVE) Urine RBC (0-5) Urine WBC (0-5) Ur Epithelial Cells Amorphous Sediment Urine Bacteria Urine Mucus 02/19/19 02/19/19 Range/Units 07:50 09:28 WBC (4.5-11.0) K/uL RBC (4.30-5.90) M/uL Hgb (12.0-15.0) g/dL Hct (40.0-54.0) % MCV (80-98) fL MCH (27-31) pg MCHC (32-36) % Plt Count (150-400) K/uL Neut % (Auto) (36-66) % Lymph % (Auto) (24-44) % Davis % (Auto) (2-6) % Eos % (Auto) (2-4) % Baso % (Auto) (0-1) % PT (9.5-12.0) sec INR (0.80-1.20) Sodium (140-148) mmol/L Potassium (3.6-5.2) mmol/L Chloride (100-108) mmol/L Carbon Dioxide (21-32) mmol/L Anion Gap (5.0-14.0) mmol/L BUN (7-18) mg/dL Creatinine (0.8-1.3) mg/dL Est Cr Clr Drug Dosing mL/min Estimated GFR (MDRD) (>60) Glucose (74-106) mg/dL Uric Acid 4.7 (3.5-7.2) mg/dL Calcium (8.5-10.1) mg/dL Total Bilirubin (0.2-1.0) mg/dL AST (15-37) U/L ALT (12-78) U/L Alkaline Phosphatase (46-116) U/L Total Protein (6.4-8.2) g/dL Albumin (3.4-5.0) g/dL Globulin (2.3-3.5) g/dL Albumin/Globulin Ratio (1.2-2.2) Urine Color Yellow Urine Appearance Clear Urine pH 7.0 (4.5-8.0) Ur Specific [place] 1.015 (1.008-1.030) Urine Protein Trace (NEGATIVE) mg/dL Urine Glucose (UA) Normal (NEGATIVE) mg/dL Urine Ketones Negative (NEGATIVE) mg/dL Urine Occult Blood Moderate (NEGATIVE) Urine Nitrite Negative (NEGAITVE) Urine Bilirubin Negative (NEGATIVE) Urine Urobilinogen Normal (NORMAL) mg/dL Ur Leukocyte Esterase Negative (NEGATIVE) Urine RBC 5-10 H (0-5) Urine WBC 0-5 (0-5) Ur Epithelial Cells Not seen Amorphous Sediment Few Urine Bacteria Not seen Urine Mucus Not seen Meds: Medications Generic Name Dose Route Start Last Admin Trade Name Freq PRN Reason Stop Dose Admin Sodium Chloride 1,000 mls @ 999 mls/hr 02/19/19 09:00 02/19/19 09:34 Normal Saline IV 999 mls/hr ASDIRECTED JOHN Administration Discontinued Medications Generic Name Dose Route Start Last Admin Trade Name Freq PRN Reason Stop Dose Admin Acetaminophen 650 mg 02/19/19 09:45 Tylenol PO 02/19/19 09:46 NOW ONE Ketorolac Tromethamine 60 mg 02/19/19 09:06 02/19/19 09:31 Toradol IM 02/19/19 09:07 60 mg ONETIME ONE Administration - Re-Assessments/Exams Free Text/Narrative Re-Assessment/Exam: 02/19/19 06:48 Right foot and right ankle x-rays were obtained. 02/19/19 07:[address] over to Dr[address] Presley pending x-rays. Departure - Departure Disposition: Home, Self-Care 01 Clinical Impression: Degenerative arthritis of right ankle, Dehydration, Vertigo - Discharge Information Referrals: PCP,None [Primary Care Provider] - Forms: ED Department Discharge Care Plan Goals: admit to Dr ortega - My Orders Last 24 Hours: My Active Orders 02/19/19 09:00 Sodium Chloride 0.9% [Normal Saline] 1,000 ml IV ASDIRECTED - Assessment/Plan Last 24 Hours: My Active Orders 02/19/19 09:00 Sodium Chloride 0.9% [Normal Saline] 1,000 ml IV ASDIRECTED <Elvia Presley - Last Filed: 02/19/19 10:07> Course - Re-Assessments/Exams Free Text/Narrative Re-Assessment/Exam: 02/19/19 10:03 pt had a cat scan of the head was --neg for acute findings. He had a neg urine for infection. Pt is being hydrated. Discharge planning did see the pt and the plan is to admit over nite and have home care and some equipment to help her care for the pt. Departure - Departure Time of Disposition: 10:06 Condition: Fair
--- NOTE | 2019-02-19 07:19 | CRLCR ---
3 VIEWS left foot INDICATION: Injury. IMPRESSION: No visualized fracture. FINDINGS: Plantar spurring. Hammertoes of the lateral view. The bones are demineralized. Early joint space narrowing of the 1st MTP. Dictated by Manuel Branham MD @ Feb 19 2019 7:17AM Signed by Dr. Manuel Branham @ Feb 19 2019 7:18AM
--- NOTE | 2019-02-19 07:19 | CRLCR ---
3 VIEWS left ankle INDICATION: Injury. IMPRESSION: No visualized fracture. Alignments anatomic. FINDINGS: Advanced joint space narrowing and hypertrophic spurring at the tibiotalar space. Osteopenia. Plantar spurring is present. Dictated by Manuel Branham MD @ Feb 19 2019 7:17AM Signed by Dr. Manuel Branham @ Feb 19 2019 7:17AM
--- NOTE | 2019-02-19 08:50 | CT ---
Head wo Cont CLINICAL HISTORY: Weakness, vertigo COMPARISON: 2007 TECHNIQUE: Transverse scans were obtained from the base of the skull through the vertex without IV contrast on a multislice, multidetector CT scanner. Auto dosage reduction and iterative reconstruction techniques employed. FINDINGS: No focal abnormal parenchymal density is identified.. There is no mass effect, hemorrhage, or extraaxial collection. The basal cisterns and sulci over the convexities are prominent. The ventricles are normal for age. There is some periventricular and subcortical lucency The basilar artery is mildly ectatic and tortuous. IMPRESSION: Age-related atrophy. Chronic ischemic microvascular changes No focal mass lesion hemorrhage or extra-axial collection
[2019-02-19] MEDS ORDERED: Sodium Chloride 0.9% 1,000 ML IV SCH (09:00)
[2019-02-19] MEDS ORDERED: Ketorolac 60 MG/2 ML SDV IM ONE (09:06)
[2019-02-19] MEDS ORDERED: Acetaminophen 325 MG Tab PO ONE (09:45)
--- NOTE | 2019-02-19 10:55 | PCM.HP ---
H&P History of Present Illness - General Date of Service: 02/19/19 Admit Problem/Dx: Admission Diagnosis/Problem Admission Diagnosis/Problem Vertigo Source of Information: Patient, Family, Provider History Limitations: Reports: No Limitations - History of Present Illness Initial Comments - Free Text/Narative: Art presented to the emergency room this morning after falling down and being too weak to get up. He does not report preceding symptoms, he simply states that he became weak in the legs suddenly and slumped to the ground. He did not have any specific injuries at the time of his fall. He continues to complain of moderate achy right ankle pain. Tylenol does help the pain. Moving around on his ankle seems to make the pain worse. He does report twisting the ankle several days ago but also has chronic pain in the ankle. This pain has been worse than usual. He is not aware of any recent fevers. He does think is vertical been a little worse the past few days but currently does not have much dizziness. No complaint of abdominal pain or nausea. He does have chronic constipation which is unchanged. Workup in the emergency room has been fairly reassuring. No significant lab abnormalities. No evidence for ankle fracture. Head CT was unremarkable. Given his weakness and dizziness he will be admitted for observation and physical therapy evaluation. right ankle/foot Pain Score (Numeric/FACES): 4 - Related Data Allergies/Adverse Reactions: Allergies Allergy/AdvReac Type Severity Reaction Status Date / Time codeine Allergy Cannot Verified 02/19/19 06:21 Remember lisinopril Allergy Cannot Verified 02/19/19 06:21 Remember zolpidem tartrate AdvReac Confusion Verified 02/19/19 12:10 [From Ambien] Home Medications: Home Meds ALPRAZolam [Alprazolam] 0.25 mg PO DAILY 04/23/17 [History] Losartan [Cozaar] 75 mg PO DAILY 04/23/17 [History] Warfarin Sodium [Coumadin] 4.5 mg PO ASDIRECTED 04/23/17 [History] Warfarin [Coumadin] 3 mg PO ASDIRECTED 04/23/17 [History] traZODone 50 mg PO BEDTIME 04/23/17 [History] Albuterol Sulfate [Proair Hfa] 1 - 2 puff IH Q4H PRN 08/17/18 [History] Fluticasone Propionate [Flonase] 2 spray NASBOTH DAILY 08/17/18 [History] Metoprolol Succinate [Toprol XL 100mg] 100 mg PO DAILY 08/17/18 [History] Polyethylene Glycol 3350 [MiraLAX] 17 gm PO ASDIRECTED PRN 08/17/18 [History] Tamsulosin HCl [Flomax] 0.4 mg PO DAILY 08/17/18 [History] Past Medical History HEENT History: Reports: Head, Impaired Vision Cardiovascular History: Reports: Afib, High Cholesterol, Hypertension Respiratory History: Reports: SOB Genitourinary History: Reports: BPH Musculoskeletal History: Reports: Arthritis Dermatologic History: Reports: Other (See Below) Other Dermatologic History: auricle of right ear w/out complication, has appt w / Dr. Tsang - Past Surgical History HEENT Surgical History: Reports: Tonsillectomy Musculoskeletal Surgical History: Reports: Knee Replacement Social & Family History - Family History Cardiac: Denies: CAD - Tobacco Use Smoking Status *Q: Never Smoker - Caffeine Use Caffeine Use: Reports: Coffee - Alcohol Use Alcohol Use History: No - Recreational Drug Use Recreational Drug Use: No H&P Review of Systems - Review of Systems: Review Of Systems: See Below Free Text/Narrative: A complete 12 point review of systems was obtained. Pertinent positives and negatives are noted in the history of present illness. All other systems were reviewed and were negative except as noted. Exam - Exam Exam: See Below - Vital Signs Vital Signs: Last Vital Signs Temp 37.6 C 02/19/19 06:18 Pulse 77 02/19/19 09:29 Resp 15 02/19/19 06:18 BP 152/87 H 02/19/19 09:51 Pulse Ox 93 L 02/19/19 08:51 Weight: 81.193 kg - Exam Quality Assessment: No: Supplemental Oxygen General: Alert, Oriented, Cooperative. No: Mild Distress HEENT: Conjunctiva Clear, Mucosa Moist & [place]. No: Scleral Icterus Neck: Supple, Trachea Midline. No: Lymphadenopathy Lungs: Clear to Auscultation, Normal Respiratory Effort Cardiovascular: Regular Rate, Irregular Rhythm, Systolic Murmur GI/Abdominal Exam: Normal Bowel Sounds, Soft, Non-Tender, No Distention Extremities: No Pedal Edema, Joint Swelling (mild right ankle swelling medially ). No: Increased Warmth Peripheral Pulses: 2+: Dorsalis Pedis (L), Dorsalis Pedis (R) Skin: Warm, Dry Neuro Extensive - Mental Status: Alert, Oriented x3, Nl Response to Commands Neuro Extensive - Motor, Sensory, Reflexes: CN II-XII Intact. No: Dysarthria, Abnormal Motor, Tremor Psychiatric: Alert, Normal Affect - Patient Data Lab Results Last 24 hrs: Laboratory Results - last 24 hr 02/19/19 02/19/19 02/19/19 Range/Units 07:44 07:44 07:50 WBC 10.2 (4.5-11.0) K/uL RBC 4.27 L (4.30-5.90) M/uL Hgb 13.1 (12.0-15.0) g/dL Hct 40.1 (40.0-54.0) % MCV 94 (80-98) fL MCH 31 (27-31) pg MCHC 33 (32-36) % Plt Count 125 L (150-400) K/uL Neut % (Auto) 75 H (36-66) % Lymph % (Auto) 14 L (24-44) % [place] % (Auto) 11 H (2-6) % Eos % (Auto) 0 L (2-4) % Baso % (Auto) 0 (0-1) % PT 23.7 H (9.5-12.0) sec INR 2.26 H (0.80-1.20) Sodium 139 L (140-148) mmol/L Potassium 3.7 (3.6-5.2) mmol/L Chloride 102 (100-108) mmol/L Carbon Dioxide 29 (21-32) mmol/L Anion Gap 11.7 (5.0-14.0) mmol/L BUN 15 (7-18) mg/dL Creatinine 0.9 (0.8-1.3) mg/dL Est Cr Clr Drug Dosing 65.07 mL/min Estimated GFR (MDRD) > 60 (>60) Glucose 110 H (74-106) mg/dL Uric Acid (3.5-7.2) mg/dL Calcium 8.9 (8.5-10.1) mg/dL Total Bilirubin 1.5 H (0.2-1.0) mg/dL AST 18 (15-37) U/L ALT 18 (12-78) U/L Alkaline Phosphatase 77 (46-116) U/L Total Protein 7.1 (6.4-8.2) g/dL Albumin 3.0 L (3.4-5.0) g/dL Globulin 4.1 H (2.3-3.5) g/dL Albumin/Globulin Ratio 0.7 L (1.2-2.2) Urine Color Urine Appearance Urine pH (4.5-8.0) Ur Specific [place] (1.008-1.030) Urine Protein (NEGATIVE) mg/dL Urine Glucose (UA) (NEGATIVE) mg/dL Urine Ketones (NEGATIVE) mg/dL Urine Occult Blood (NEGATIVE) Urine Nitrite (NEGAITVE) Urine Bilirubin (NEGATIVE) Urine Urobilinogen (NORMAL) mg/dL Ur Leukocyte Esterase (NEGATIVE) Urine RBC (0-5) Urine WBC (0-5) Ur Epithelial Cells Amorphous Sediment Urine Bacteria Urine Mucus 02/19/19 02/19/19 Range/Units 07:50 09:28 WBC (4.5-11.0) K/uL RBC (4.30-5.90) M/uL Hgb (12.0-15.0) g/dL Hct (40.0-54.0) % MCV (80-98) fL MCH (27-31) pg MCHC (32-36) % Plt Count (150-400) K/uL Neut % (Auto) (36-66) % Lymph % (Auto) (24-44) % [place] % (Auto) (2-6) % Eos % (Auto) (2-4) % Baso % (Auto) (0-1) % PT (9.5-12.0) sec INR (0.80-1.20) Sodium (140-148) mmol/L Potassium (3.6-5.2) mmol/L Chloride (100-108) mmol/L Carbon Dioxide (21-32) mmol/L Anion Gap (5.0-14.0) mmol/L BUN (7-18) mg/dL Creatinine (0.8-1.3) mg/dL Est Cr Clr Drug Dosing mL/min Estimated GFR (MDRD) (>60) Glucose (74-106) mg/dL Uric Acid 4.7 (3.5-7.2) mg/dL Calcium (8.5-10.1) mg/dL Total Bilirubin (0.2-1.0) mg/dL AST (15-37) U/L ALT (12-78) U/L Alkaline Phosphatase (46-116) U/L Total Protein (6.4-8.2) g/dL Albumin (3.4-5.0) g/dL Globulin (2.3-3.5) g/dL Albumin/Globulin Ratio (1.2-2.2) Urine Color Yellow Urine Appearance Clear Urine pH 7.0 (4.5-8.0) Ur Specific [place] 1.015 (1.008-1.030) Urine Protein Trace (NEGATIVE) mg/dL Urine Glucose (UA) Normal (NEGATIVE) mg/dL Urine Ketones Negative (NEGATIVE) mg/dL Urine Occult Blood Moderate (NEGATIVE) Urine Nitrite Negative (NEGAITVE) Urine Bilirubin Negative (NEGATIVE) Urine Urobilinogen Normal (NORMAL) mg/dL Ur Leukocyte Esterase Negative (NEGATIVE) Urine RBC 5-10 H (0-5) Urine WBC 0-5 (0-5) Ur Epithelial Cells Not seen Amorphous Sediment Few Urine Bacteria Not seen Urine Mucus Not seen Result Diagrams: 02/19/19 07:44 02/19/19 07:44 Imaging Impressions Last 24 hrs: Head CT - images personally reviewed - there is no mass, hemorrhage or infarct. Age related atrophy is noted Right ankle x-ray - no evidence for fracture *Q Meaningful Use (ADM) - VTE Risk Assess *Q Each Risk Factor Represents 1 Point: Swollen Legs, Current Total Score 1 Point Risk Factors: 1 Each Risk Factor Represents 2 Points: None Total Score 2 Point Risk Factors: 0 Each Risk Factor Represents 3 Points: Age 75 Years or Greater Total Score 3 Point Risk Factors: 3 Each Risk Factor Represents 5 Points: None Total Score 5 Point Risk Factors: 0 Venous Thromboembolism Risk Factor Score *Q: 4 - Problem List (1) Right ankle sprain SNOMED Code(s): 66474321 ICD Code: S93.401A - SPRAIN OF UNSPECIFIED LIGAMENT OF RIGHT ANKLE, INIT ENCNTR Status: Acute Current Visit: Yes Qualifiers: Encounter type: initial encounter Involved ligament of ankle: unspecified ligament Qualified Code(s): S93.401A - Sprain of unspecified ligament of right ankle, initial encounter (2) Weakness SNOMED Code(s): 62837298 ICD Code: R53.1 - WEAKNESS Status: Resolved Current Visit: No (3) Vertigo SNOMED Code(s): 253245872 ICD Code: R42 - DIZZINESS AND GIDDINESS Status: Acute Current Visit: Yes (4) Chronic atrial fibrillation SNOMED Code(s): 398334280 ICD Code: I48.2 - CHRONIC ATRIAL FIBRILLATION Status: Chronic Current Visit: Yes Problem List Initiated/Reviewed/Updated: Yes Orders Last 24hrs: Active Orders 24 hr Category Date Time Status Patient Status Manage Transfer [TRANSFER] Routine ADT 02/19/19 10:47 Ordered Sodium Chloride 0.9% [Normal Saline] 1,000 ml Med 02/19/19 09:00 Active IV ASDIRECTED Resuscitation Status Routine Resus Stat 02/19/19 10:49 Ordered Medication Orders Sodium Chloride (Normal Saline) 1,000 mls @ 999 mls/hr IV ASDIRECTED JOHN Last Admin: 02/19/19 09:34 Dose: 999 mls/hr Assessment/Plan Comment:: ASSESSMENT AND PLAN - Right ankle pain and weakness - patient has limited mobility at baseline and this has been worsened by his ankle sprain and more weakness than usual. He had been getting around using a walker or a cane. No evidence for fracture on the x- rays. No evidence for infection. Vertigo discussed below may be contributing to his difficulty with ambulation to some extent. -Scheduled acetaminophen for his ankle pain -Physical therapy evaluation -Gentle hydration Vertigo - patient has had intermittent symptoms for quite some time. He has worked with vestibular rehabilitation in the past. Symptoms are mild currently but have been more intense over the past several days. -Physical therapy Chronic atrial fibrillation - chronically anticoagulated. Currently rate controlled. -Continue rate control -Continue warfarin Maintenance issues - - DVT prophylaxis - warfarin - GI prophylaxis - not indicated - Nutrition - regular diet - Obrien catheter - not indicated CODE STATUS - DNR/DNI Admission justification - patient will be referred observation status for physical therapy and symptom management Disposition - I would anticipate discharge home with home care though if patient does not do well with physical therapy may need to spend some time in the correction for subacute rehabilitation Primary care physician - Dr. Jolanta Bridges M.D.
[2019-02-19] MEDS ORDERED: Magnesium Hydroxide 400 MG/5 ML Susp 30 ML Cup PO PRN (12:09)
[2019-02-19] MEDS ORDERED: Ondansetron 4 MG Tab.DIS PO PRN (12:09)
[2019-02-19] MEDS: Sodium Chloride 0.9% 1,000 ML IV SCH ×2 (13:14→23:25)
[2019-02-19] MEDS: Acetaminophen 500 MG Tab PO SCH ×2 (15:23→20:51)
[2019-02-19] MEDS: WARFARIN 3 MG PO SCH (16:49)
[2019-02-19] MEDS ORDERED: ALPRAZolam 0.25 MG Tab PO SCH (21:00)
[2019-02-19] MEDS ORDERED: TRAZODONE 50 MG PO SCH (21:00)
[2019-02-20] MEDS: Acetaminophen 500 MG Tab PO SCH ×2 (08:49→13:52)
[2019-02-20] MEDS ORDERED: POLYETHYLENE GLYCOL PO SCH (09:00)
[2019-02-20] MEDS ORDERED: LOSARTAN 50 MG PO SCH (09:00)
[2019-02-20] MEDS ORDERED: TAMSULOSIN 0.4 MG PO SCH (09:00)
[2019-02-20] MEDS ORDERED: METOPROLOL SUCCINATE 100 MG PO SCH (09:00)
[2019-02-20] MEDS: Sodium Chloride 0.9% 1,000 ML IV SCH (09:30)
[2019-02-20 13:07] VITALS: BP 170/94
[2019-02-20] MEDS: WARFARIN 3 MG PO SCH (13:51)
--- NOTE | 2019-02-20 13:59 | PCM.DCSUM1 ---
Discharge Summary - Hospital Course Brief History: 83-year-old male with history of chronic ankle pain, chronic atrial fibrillation and vertigo who presented with dizziness, weakness and increased ankle pain. He was admitted for physical therapy and occupational therapy evaluations. Diagnosis: Stroke: No - Discharge Data Discharge Date: 02/20/19 Discharge Disposition: Home, [facility] Condition: Fair - Discharge Diagnosis/Problem(s) (1) Right ankle sprain SNOMED Code(s): 51355407 ICD Code: S93.401A - SPRAIN OF UNSPECIFIED LIGAMENT OF RIGHT ANKLE, INIT ENCNTR Status: Acute Current Visit: Yes Qualifiers: Encounter type: initial encounter Involved ligament of ankle: unspecified ligament Qualified Code(s): S93.401A - Sprain of unspecified ligament of right ankle, initial encounter (2) Vertigo SNOMED Code(s): 908876706 ICD Code: R42 - DIZZINESS AND GIDDINESS Status: Acute Current Visit: Yes (3) Chronic atrial fibrillation SNOMED Code(s): 728494321 ICD Code: I48.2 - CHRONIC ATRIAL FIBRILLATION Status: Chronic Current Visit: Yes - Patient Summary/Data Consults: Consultations 02/19/19 12:09 PT Evaluation and Treatment [CONS] Routine Please Evaluate and Treat. PT Reason for Consult: Ambulation This query below is only for informational purposes and is not editable. 02/20/19 07:00 OT Evaluation and Treatment [CONS] Routine Please Evaluate and Treat. OT Reason for Consult: ADL's This query below is only for informational purposes and is not editable. Admission Diagnosis/Problem: Vertigo Hospital Course: Art presented to the emergency room with weakness, increased right ankle pain and dizziness. Workup in the emergency room was reassuring. Unfortunately with his weakness, acute on chronic ankle issues and dizziness he was not safe to go home. He was admitted to the hospital for physical and occupational therapy. He did work with physical therapy the afternoon after admission and seemed to have good strength and was doing okay. He worked with physical and occupational therapy again the morning after admission. For the physical therapy he did well and was able to get out of bed by himself and ambulate with walker. He was felt to be safe as long as he had supervision. Outpatient therapy was recommended. He did work with occupational therapy but was not having significant vertigo during the time of their evaluation or during hospital stay for that matter. His vitals all have been stable. He is interested in trying to go home. His significant other is comfortable with him coming home and being set up with home physical therapy for a short period of time. His appetite and spirits have been good. Overall I am concerned that this patient is starting to fail and may need assisted placement down the road, possibly in the near future. Hopefully the home physical therapy will be beneficial and keep him at home as long as possible. - Patient Instructions Diet: Regular Diet as Tolerated Activity: As Tolerated Showering/Bathing: May Shower Notify Provider of: Fever, Increased Pain Other/Special Instructions: 1. You were and dizziness. Your symptoms have been improving with physical therapy. You may wear the Christian wrap on your right ankle as needed for support. I would recommend you put on in the morning and then take it off at bedtime. To help with your ankle pain I would recommend that you purchase extra strength acetaminophen. You should take 2 of these tablets or 1000 mg 3 times daily (morning, early afternoon and bedtime). 2. Continue your your usual home medications as previously prescribed. 3. I have placed a referral to home health services. They will be providing physical therapy services to help ease your transition home and provide a home safety evaluation. 4. Seek medical attention if you fever greater than 101 or profound weakness - Discharge Plan *PRESCRIPTION DRUG MONITORING PROGRAM REVIEWED*: Not Applicable *COPY OF PRESCRIPTION DRUG MONITORING REPORT IN PATIENT BARBIE: Not Applicable Home Medications: Home Meds ALPRAZolam [Alprazolam] 0.25 mg PO DAILY 04/23/17 [History] Losartan [Cozaar] 75 mg PO DAILY 04/23/17 [History] Warfarin Sodium [Coumadin] 4.5 mg PO ASDIRECTED 04/23/17 [History] Warfarin [Coumadin] 3 mg PO ASDIRECTED 04/23/17 [History] traZODone 50 mg PO BEDTIME 04/23/17 [History] Albuterol Sulfate [Proair Hfa] 1 - 2 puff IH Q4H PRN 08/17/18 [History] Fluticasone Propionate [Flonase] 2 spray NASBOTH DAILY 08/17/18 [History] Metoprolol Succinate [Toprol XL 100mg] 100 mg PO DAILY 08/17/18 [History] Polyethylene Glycol 3350 [MiraLAX] 17 gm PO ASDIRECTED PRN 08/17/18 [History] Tamsulosin HCl [Flomax] 0.4 mg PO DAILY 08/17/18 [History] Oxygen Therapy Mode: Room Air Patient Handouts: Weakness Referrals: Art Stover MD [Physician] - (1-2 weeks - f/u hospital stay for weakness , ankle pain) - Discharge Summary/Plan Comment DC Time >30 min.: Yes (40 - setting up home health care) - Patient Data Vitals - Most Recent: Last Vital Signs Temp 35.7 C 02/20/19 13:04 Pulse 49 L 02/20/19 13:04 Resp 24 H 02/20/19 13:04 BP 170/94 H 02/20/19 13:04 Pulse Ox 95 02/20/19 13:04 Weight - Most Recent: 81.193 kg I&O - Last 24 hours: Intake & Output 02/19/19 02/20/19 02/20/19 22:59 06:59 14:59 Intake Total 340 1674 Output Total 200 200 Balance 340 1474 -200 Med Orders - Current: Current Medications Acetaminophen (Tylenol Extra Strength) 1,000 mg PO TID [facility] Last Admin: 02/20/19 13:52 Dose: 1,000 mg Alprazolam (Xanax) 0.25 mg PO BEDTIME [facility] Last Admin: 02/19/19 20:51 Dose: 0.25 mg Sodium Chloride (Normal Saline) 1,000 mls @ 100 mls/hr IV ASDIRECTED [facility] Last Admin: 02/20/19 09:30 Dose: 100 mls/hr Losartan Potassium (Cozaar) 75 mg PO DAILY [facility] Last Admin: 02/20/19 08:35 Dose: 75 mg Magnesium Hydroxide (Milk Of Magnesia) 30 ml PO Q12H PRN PRN Reason: Constipation Metoprolol Succinate (100 Mg Pom) 0 mg PO DAILY [facility] Last Admin: 02/20/19 08:42 Dose: 100 mg Warfarin 3mg Pom 0 mg PO WeSa@1300 [facility] Warfarin 3 Mg Pom* (*) 0 mg PO SuMoTuThFr@1300 [facility] Last Admin: 02/20/19 13:51 Dose: 3 mg Ondansetron HCl (Zofran Odt) 4 mg PO Q6H PRN PRN Reason: Nausea able to take PO Polyethylene Glycol (Miralax) 17 gm PO DAILY [facility] Last Admin: 02/20/19 08:50 Dose: 17 gm Tamsulosin HCl (Flomax) 0.4 mg PO DAILY [facility] Last Admin: 02/20/19 08:36 Dose: 0.4 mg Trazodone HCl (Trazodone) 50 mg PO BEDTIME [facility] Last Admin: 02/19/19 20:51 Dose: 50 mg Discontinued Medications Acetaminophen (Tylenol) 650 mg PO NOW ONE Stop: 02/19/19 09:46 Last Admin: 02/19/19 10:58 Dose: 650 mg Sodium Chloride (Normal Saline) 1,000 mls @ 999 mls/hr IV ASDIRECTED [facility] Last Admin: 02/19/19 09:34 Dose: 999 mls/hr Ketorolac Tromethamine (Toradol) 60 mg IM ONETIME ONE Stop: 02/19/19 09:07 Last Admin: 02/19/19 09:31 Dose: 60 mg - Exam Quality Assessment: Denies: Supplemental Oxygen General: Reports: Alert, Oriented, Cooperative, No Acute Distress Lungs: Reports: Normal Respiratory Effort GI/Abdominal Exam: Soft, No Distention Extremities: No Pedal Edema Psy/Mental Status: Reports: Alert, Normal Affect
[2019-02-21] MEDS ORDERED: WARFARIN 3 MG PO SCH (13:00)
== END 2019-02-20 16:42 | disposition home health service (06) ==
LOC: JP.ED 06:15 → JP.MS 10:47
PROVIDERS: ADMIT Internal Medicine; ATTEND Internal Medicine
DX: S93.401A Sprain of unspecified ligament of right ankle, initial encounter (principal); R42 Dizziness and giddiness; I10 Essential (primary) hypertension; E78.00 Pure hypercholesterolemia, unspecified; I48.2 Chronic atrial fibrillation; Z79.01 Long term (current) use of anticoagulants; Z79.899 Other long term (current) drug therapy
CPT/HCPCS: 36415; 70450; 70450-26; 73610-RT; 73630-RT; 80053; 81001; 84550; 85025; 85610; 96360; 96372; 97110-GP; 97162-GP; 97530-GP; 97535-GP; 99284; 99285-25; A9270-GY; J1885; J7030

== ENCOUNTER 2019-03-03 07:07 | Emergency (ER) | payer MEDICARE, BC ==
[2019-03-03 07:27] VITALS: BP 131/85
--- NOTE | 2019-03-03 08:37 | EDM.PDOC ---
<Nimo Harvey M - Last Filed: 03/03/19 09:06> ED HPI GENERAL MEDICAL PROBLEM - General Chief Complaint: Genitourinary Problem Stated Complaint: URINARY FREQUENCY Time Seen by Provider: 03/03/19 07:36 Source of Information: Reports: Patient, Family - History of Present Illness INITIAL COMMENTS - FREE TEXT/NARRATIVE: Patient brought in by with complaints of frequent urination overnight; she states, "he got up every one and a half hours". Patient denies dysuria, blood in urine, penile discharge, bladder distention or other changes to urine color or smell. Onset: Today Location: Reports: Lower Extremity, Right Quality: Reports: Other (denies pain to penis or abdominal pain) - Related Data Allergies Allergy/AdvReac Type Severity Reaction Status Date / Time codeine Allergy Cannot Verified 03/03/19 07:30 Remember lisinopril Allergy Cannot Verified 03/03/19 07:30 Remember zolpidem tartrate AdvReac Confusion Verified 03/03/19 07:30 [From Amy] Home Meds: Home Meds ALPRAZolam [Alprazolam] 0.25 mg PO DAILY 04/23/17 [History] Losartan [Cozaar] 75 mg PO DAILY 04/23/17 [History] Warfarin Sodium [Coumadin] 4.5 mg PO ASDIRECTED 04/23/17 [History] Warfarin [Coumadin] 3 mg PO ASDIRECTED 04/23/17 [History] traZODone 50 mg PO BEDTIME 04/23/17 [History] Albuterol Sulfate [Proair Hfa] 1 - 2 puff IH Q4H PRN 08/17/18 [History] Fluticasone Propionate [Flonase] 2 spray NASBOTH DAILY 08/17/18 [History] Metoprolol Succinate [Toprol XL 100mg] 100 mg PO DAILY 08/17/18 [History] Polyethylene Glycol 3350 [MiraLAX] 17 gm PO ASDIRECTED PRN 08/17/18 [History] Tamsulosin HCl [Flomax] 0.4 mg PO DAILY 08/17/18 [History] Past Medical History HEENT History: Reports: Hard of Hearing, Head, Impaired Vision Cardiovascular History: Reports: Afib, High Cholesterol, Hypertension Respiratory History: Reports: SOB Gastrointestinal History: Reports: Chronic Constipation, Other (See Below) Other Gastrointestinal History: Daily Miralax Genitourinary History: Reports: BPH Musculoskeletal History: Reports: Arthritis, Other (See Below) Other Musculoskeletal History: -Fall 02/19/2019 up to bathroom without FWW. -R lateral ankle sprain 02/2019 when stepping into passenger side of vehicle. 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 Tsang - Past Surgical History Musculoskeletal Surgical History: Reports: Knee Replacement, Other (See Below) Other Musculoskeletal Surgeries/Procedures:: B TKA noting several surgeries on the L knee Social & Family History - Tobacco Use Smoking Status *Q: Never Smoker - Caffeine Use Caffeine Use: Reports: Coffee ED ROS GENERAL - Review of Systems Review Of Systems: ROS reveals no pertinent complaints other than HPI. Constitutional: Reports: No Symptoms HEENT: Reports: No Symptoms Respiratory: Reports: No Symptoms Cardiovascular: Reports: No Symptoms Endocrine: Reports: No Symptoms : Reports: Frequency Musculoskeletal: Reports: No Symptoms Skin: Reports: No Symptoms Neurological: Reports: No Symptoms Psychiatric: Reports: No Symptoms Hematologic/Lymphatic: Reports: No Symptoms Immunologic: Reports: No Symptoms ED EXAM, RENAL/ - Physical Exam Exam: See Below Exam Limited By: No Limitations General Appearance: Alert, WD/WN, No Apparent Distress Ears: Hearing Grossly Normal Head: Atraumatic, Normocephalic Respiratory/Chest: No Respiratory Distress, Lungs Clear, Normal Breath Sounds, No Accessory Muscle Use, Chest Non-Tender Cardiovascular: Other (bilateral LE edema, 1+ pitting. States this is normal for him. ) Back Exam: Full Range of Motion Extremities: Normal Range of Motion Neurological: Alert, Oriented, Normal Cognition Psychiatric: Normal Affect, Normal Mood Skin Exam: Warm, Dry, Intact, Normal Color, No Rash Lymphatic: No Adenopathy Course - Vital Signs Text/Narrative:: Long discussion with patient and about changes to sleep patterns and patient's restlessness and some ideas about home respite services for to check into so she can continue the active lifestyle she wants while assuring her has care at home - she worries about his safety while she's out. Last Recorded V/S: Last Vital Signs Temp 35.6 C 03/03/19 07:31 Pulse 58 L 03/03/19 07:31 Resp 10 L 03/03/19 07:31 BP 131/85 03/03/19 07:31 Pulse Ox 94 L 03/03/19 07:31 - Orders/Labs/Meds Orders: Active Orders 24 hr Category Date Time Status Bladder Scan [RC] ASDIRECTED Care 03/03/19 08:29 Active Labs: Laboratory Tests 03/03/19 Range/Units 07:38 Urine Color Yellow Urine Appearance Clear Urine pH 5.0 (4.5-8.0) Ur Specific [place] 1.015 (1.008-1.030) Urine Protein Negative (NEGATIVE) mg/dL Urine Glucose (UA) Normal (NEGATIVE) mg/dL Urine Ketones Negative (NEGATIVE) mg/dL Urine Occult Blood Moderate (NEGATIVE) Urine Nitrite Negative (NEGAITVE) Urine Bilirubin Negative (NEGATIVE) Urine Urobilinogen Normal (NORMAL) mg/dL Ur Leukocyte Esterase Negative (NEGATIVE) Urine RBC 0-5 (0-5) Urine WBC Not seen (0-5) Ur Epithelial Cells Not seen Amorphous Sediment Not seen Urine Bacteria Not seen Urine Mucus Moderate Departure - Departure Time of Disposition: 09:09 Disposition: Home, Self-Care 01 Clinical Impression: Urinary frequency - Discharge Information *PRESCRIPTION DRUG MONITORING PROGRAM REVIEWED*: Not Applicable *COPY OF PRESCRIPTION DRUG MONITORING REPORT IN PATIENT BARBIE: Not Applicable Instructions: Urinary Frequency, Adult Referrals: Art Stover MD [Primary Care Provider] - Forms: ED Department Discharge Additional Instructions: After discussion with preceptor, a trial dose of Pyridium 100mg one pill at bedtime was suggested, prescription given. Reassured there are no acute findings for patient's frequency from last night. Will follow up with PCP as needed. <Ranulfo Elmore - Last Filed: 03/03/19 12:39> Course - Re-Assessments/Exams Free Text/Narrative Re-Assessment/Exam: 03/03/19 12:37 I saw this gentleman along with the nurse practitioner student. He complains of urinary frequency. It happens every 30 minutes to 1 hour during the night. He has a sensation of his bladder being full. He gets up and urinates up to about 250 mL or so. That he feels better and goes back to bed. He never has any burning on urination. He never has difficulty starting a stream. He's not using diuretics. The bladder was not distended a scan showed only about 150 mL of residual urine. Urinalysis was normal. My impression is that he may be having a little bit of trigonitis. We'll try some Pyridium for this. I agree with the nurse practitioner student's assessment and plan
== END 2019-03-03 09:31 | disposition home or self-care (01) ==
LOC: JP.ED 07:07
DX: R35.0 Frequency of micturition (principal); I48.91 Unspecified atrial fibrillation; E78.00 Pure hypercholesterolemia, unspecified; I10 Essential (primary) hypertension; Z88.5 Allergy status to narcotic agent; Z88.8 Allergy status to other drugs, medicaments and biological substances; Z79.899 Other long term (current) drug therapy; Z79.01 Long term (current) use of anticoagulants
CPT/HCPCS: 51798; 81001; 99282; 99283

== ENCOUNTER 2019-05-01 10:26 | Emergency (ER) | payer MEDICARE, BC ==
[2019-05-01 10:51] VITALS: BP 161/77
--- NOTE | 2019-05-01 11:13 | EDM.PDOC ---
ED HPI GENERAL MEDICAL PROBLEM - General Chief Complaint: General Stated Complaint: CHEST WALL PAIN Time Seen by Provider: 05/01/19 10:50 Source of Information: Reports: Patient, Family History Limitations: Reports: No Limitations - History of Present Illness INITIAL COMMENTS - FREE TEXT/NARRATIVE: 83-year-old male that has been struggling with some intermittent left upper chest and shoulder discomfort that seems to resolve or improve with icy hot, but he has also been weak, generalized malaise and his thinks his speech is a little bit slurred compared to his baseline over the past 2-3 weeks so they called the clinic to ask if they could see someone to discuss this and they sent him to the emergency room. He said no fevers or chills, no cough or shortness of breath, no other pain other than the pain in his shoulder which his says seems to be localized just under her shoulder blade. No rashes or bruising. No recent falls or injury. Onset: Gradual Duration: Week(s): (3 weeks) Associated Symptoms: Reports: Chest Pain (Posterior left shoulder and chest discomfort), Malaise, Weakness. Denies: Confusion, Fever/Chills, Nausea/ Vomiting, Shortness of Breath - Related Data Allergies Allergy/AdvReac Type Severity Reaction Status Date / Time codeine Allergy Cannot Verified 03/03/19 07:30 Remember lisinopril Allergy Cannot Verified 03/03/19 07:30 Remember zolpidem tartrate AdvReac Confusion Verified 03/03/19 07:30 [From Amy] Home Meds: Home Meds ALPRAZolam [Alprazolam] 0.25 mg PO DAILY 04/23/17 [History] Losartan [Cozaar] 75 mg PO DAILY 04/23/17 [History] Warfarin Sodium [Coumadin] 4.5 mg PO ASDIRECTED 04/23/17 [History] Warfarin [Coumadin] 3 mg PO ASDIRECTED 04/23/17 [History] traZODone 50 mg PO BEDTIME 04/23/17 [History] Albuterol Sulfate [Proair Hfa] 1 - 2 puff IH Q4H PRN 08/17/18 [History] Fluticasone Propionate [Flonase] 2 spray NASBOTH DAILY 08/17/18 [History] Metoprolol Succinate [Toprol XL 100mg] 100 mg PO DAILY 08/17/18 [History] Polyethylene Glycol 3350 [MiraLAX] 17 gm PO ASDIRECTED PRN 08/17/18 [History] Tamsulosin HCl [Flomax] 0.4 mg PO DAILY 08/17/18 [History] Brimonidine [Alphagan 0.2% Ophth Soln] 05/01/19 [History] Esomeprazole Magnesium [Nexium] 40 mg PO DAILY 05/01/19 [History] Latanoprost 05/01/19 [History] Past Medical History HEENT History: Reports: Hard of Hearing, Head, Impaired Vision Cardiovascular History: Reports: Afib, High Cholesterol, Hypertension Respiratory History: Reports: SOB Gastrointestinal History: Reports: Chronic Constipation, Other (See Below) Other Gastrointestinal History: Daily Miralax Genitourinary History: Reports: BPH Musculoskeletal History: Reports: Arthritis, Other (See Below) Other Musculoskeletal History: -Fall 02/19/2019 up to bathroom without FWW. -R lateral ankle sprain 02/2019 when stepping into passenger side of vehicle. 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 Tsang - Past Surgical History Musculoskeletal Surgical History: Reports: Knee Replacement, Other (See Below) Other Musculoskeletal Surgeries/Procedures:: B TKA noting several surgeries on the L knee Social & Family History - Tobacco Use Smoking Status *Q: Unknown Ever Smoked - Caffeine Use Caffeine Use: Reports: Coffee - Recreational Drug Use Recreational Drug Use: No ED ROS GENERAL - Review of Systems Review Of Systems: See Below Constitutional: Reports: Malaise. Denies: Fever, Chills HEENT: Reports: Other (Slight generalized slowing of his speech, no aphasia or significant dysarthria) Respiratory: Reports: Pleuritic Chest Pain (Left shoulder area) Cardiovascular: Reports: Other (Chronic atrial fibrillation, on Coumadin). Denies: Chest Pain, Palpitations GI/Abdominal: Denies: Abdominal Pain, Nausea, Vomiting Skin: Denies: Pallor Neurological: Denies: Headache ED EXAM, GENERAL - Physical Exam Exam: See Below Exam Limited By: No Limitations General Appearance: Alert, No Apparent Distress Eye Exam: Bilateral Eye: EOMI Head: Atraumatic Neck: Supple Respiratory/Chest: No Respiratory Distress, Lungs Clear Cardiovascular: Bradycardia, Irregularly Irregular GI/Abdominal: Soft, Non-Tender Extremities: No: Pedal Edema Neurological: Alert, Oriented Skin Exam: Warm, Dry Course - Vital Signs Last Recorded V/S: Last Vital Signs Temp 95.1 F L 05/01/19 11:13 Pulse 51 L 05/01/19 11:13 Resp 20 05/01/19 11:13 BP 161/77 H 05/01/19 11:13 Pulse Ox 98 05/01/19 11:13 - Orders/Labs/Meds Labs: Laboratory Tests 05/01/19 05/01/19 Range/Units 11:15 11:15 WBC 11.0 (4.5-11.0) K/uL RBC 4.09 L (4.30-5.90) M/uL Hgb 12.7 (12.0-15.0) g/dL Hct 39.7 L (40.0-54.0) % MCV 97 (80-98) fL MCH 31 (27-31) pg MCHC 32 (32-36) % Plt Count 156 (150-400) K/uL Neut % (Auto) 75 H (36-66) % Lymph % (Auto) 18 L (24-44) % [place] % (Auto) 6 (2-6) % Eos % (Auto) 1 L (2-4) % Baso % (Auto) 0 (0-1) % Sodium 144 (140-148) mmol/L Potassium 4.1 (3.6-5.2) mmol/L Chloride 106 (100-108) mmol/L Carbon Dioxide 30 (21-32) mmol/L Anion Gap 7.9 (5.0-14.0) mmol/L BUN 18 (7-18) mg/dL Creatinine 0.8 (0.8-1.3) mg/dL Est Cr Clr Drug Dosing 73.21 mL/min Estimated GFR (MDRD) > 60 (>60) Glucose 100 (74-106) mg/dL Calcium 8.8 (8.5-10.1) mg/dL Total Bilirubin 0.6 D (0.2-1.0) mg/dL AST 16 (15-37) U/L ALT 19 (12-78) U/L Alkaline Phosphatase 70 (46-116) U/L Troponin I 0.017 (0.000-0.056) ng/mL Total Protein 6.8 (6.4-8.2) g/dL Albumin 2.9 L (3.4-5.0) g/dL Globulin 3.9 H (2.3-3.5) g/dL Albumin/Globulin Ratio 0.7 L (1.2-2.2) - Re-Assessments/Exams Free Text/Narrative Re-Assessment/Exam: 05/01/19 11:13 Patient was placed on cardiac monitoring and displayed an atrial fibrillation with bradycardia ranging from 45-55. CBC, CMP, troponin and two-view chest x- ray were also ordered. 05/01/19 11:55 Workup is very reassuring, chest x-ray showed no infiltrate or bony pathology, CBC was normal, CMP normal and troponin negative. Patient developed no symptoms while in the emergency room. He wants to go home, I did give him 6 hydrocodone to take one half pill every 8-12 hours for extra pain control and he is going to use MiraLAX if he uses the hydrocodone. They can continue using icy hot and increase activity as tolerated. Departure - Departure Time of Disposition: 12:25 Disposition: Home, Self-Care 01 Condition: Good Clinical Impression: Nontraumatic pain of left shoulder - Discharge Information Instructions: Shoulder Pain Referrals: Art Stover MD [Primary Care Provider] - Forms: ED Department Discharge Care Plan Goals: Continue your current medications, increase activity as tolerated and use small doses of hydrocodone as discussed for extra pain control if needed. Return anytime if worsening such as difficulty breathing, fever or increased pain despite treatment.
--- NOTE | 2019-05-01 12:39 | CRLCR ---
INDICATION: Shortness of breath COMPARISON: Two view chest dated 02/18/2019 TECHNIQUE: Two view chest. FINDINGS: The lungs are clear. There is no evidence pneumothorax. There is stable tortuosity and ectasia of the thoracic aorta. Patient has a stable moderate-sized sliding hiatal hernia. The heart, mediastinum and pulmonary vessels are of normal size. There is no evidence of pleural fluid. IMPRESSION: No acute cardiopulmonary disease process identified. Dictated by Alejandro Oliveira MD @ 05/01/2019 12:37:04 PM Dictated by: Alejandro Oliveira MD @ 05/01/2019 12:37:13 (Electronically Signed)
== END 2019-05-01 12:25 | disposition home or self-care (01) ==
LOC: JP.ED 10:26
DX: M25.512 Pain in left shoulder (principal); I48.91 Unspecified atrial fibrillation; E78.00 Pure hypercholesterolemia, unspecified; I10 Essential (primary) hypertension; Z88.5 Allergy status to narcotic agent; Z88.8 Allergy status to other drugs, medicaments and biological substances; Z79.899 Other long term (current) drug therapy; Z79.01 Long term (current) use of anticoagulants
CPT/HCPCS: 36415; 71046; 80053; 84484; 85025; 99284-25

== ENCOUNTER 2019-07-01 14:10 | Emergency (ER) | payer MEDICARE, BC ==
[2019-07-01] MEDS ORDERED: Aspirin 81 MG Tab.Chew PO ONE (14:15)
[2019-07-01 14:45] VITALS: BP 183/100; PULSE 49
--- NOTE | 2019-07-01 15:19 | EDM.PDOC ---
ED HPI GENERAL MEDICAL PROBLEM - General Chief Complaint: General Stated Complaint: FELL THIS MORNING, SORE EAR AND CHEST Time Seen by Provider: 07/01/19 15:00 Source of Information: Reports: Patient, Family (Significant other of 12 years) - History of Present Illness INITIAL COMMENTS - FREE TEXT/NARRATIVE: Alert very pleasant frail appearing 83 year old male presents to ER with significant other and neighbor regarding progressive worsening of dry mouth, day time sedation, weakness, decreased appetite, difficulty swallowing, episodic confusion and frequent falls/stumbles without injury. Patient is unable to give many details regarding health or medical concerns. Female significant other is mostly concern regarding day time sleepiness and limited sleeping at night which is affected her health. Patient was evaluated in clinic for progressive weight loss. Patient had a CT Chest, Abdomen and Pelvis which showed right common iliac artery aneurysm which is pending vascular surgery consultation. Significant other is concerned about aneurysm, decreased appetite and sleeping too much during the day and not at night. Patient fell again early this am resulting in right rib pain with no other injuries. Patient takes medications at night and did not take any am medications. - Related Data Allergies Allergy/AdvReac Type Severity Reaction Status Date / Time codeine Allergy Cannot Verified 07/01/19 15:10 Remember lisinopril Allergy Cannot Verified 07/01/19 15:10 Remember zolpidem tartrate AdvReac Confusion Verified 07/01/19 15:10 [From Amy] Home Meds: Home Meds ALPRAZolam [Alprazolam] 0.25 mg PO DAILY 04/23/17 [History] Losartan [Cozaar] 75 mg PO DAILY 04/23/17 [History] Warfarin Sodium [Coumadin] 4.5 mg PO ASDIRECTED 04/23/17 [History] Warfarin [Coumadin] 3 mg PO ASDIRECTED 04/23/17 [History] traZODone 50 mg PO BEDTIME 04/23/17 [History] Albuterol Sulfate [Proair Hfa] 1 - 2 puff IH Q4H PRN 08/17/18 [History] Fluticasone Propionate [Flonase] 2 spray NASBOTH DAILY 08/17/18 [History] Metoprolol Succinate [Toprol XL 100mg] 100 mg PO DAILY 08/17/18 [History] Polyethylene Glycol 3350 [MiraLAX] 17 gm PO ASDIRECTED PRN 08/17/18 [History] Tamsulosin HCl [Flomax] 0.4 mg PO DAILY 08/17/18 [History] Brimonidine [Alphagan 0.2% Ophth Soln] 05/01/19 [History] Esomeprazole Magnesium [Nexium] 40 mg PO DAILY 05/01/19 [History] Latanoprost 05/01/19 [History] Megestrol [Megace] 20 mg PO QID 30 Days #1 bottle 07/01/19 [Rx] Saliva Stimulant Comb. No.7 [Biotene Oralbalance] 42 gm MM TID 30 Days #100 gel..gram. 07/01/19 [Rx] Saliva Substitution Combo No.9 [Biotene Pbf] 1,000 ml MM Q2HR PRN 30 Days #1 bottle 07/01/19 [Rx] Past Medical History HEENT History: Reports: Hard of Hearing, Head, Impaired Vision Cardiovascular History: Reports: Afib, High Cholesterol, Hypertension Respiratory History: Reports: SOB Gastrointestinal History: Reports: Chronic Constipation, Other (See Below) Other Gastrointestinal History: Daily Miralax Genitourinary History: Reports: BPH Musculoskeletal History: Reports: Arthritis, Other (See Below) Other Musculoskeletal History: -Fall 02/19/2019 up to bathroom without FWW. -R lateral ankle sprain 02/2019 when stepping into passenger side of vehicle. 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 Neurological History: Reports: Vertigo, Other (See Below) Other Neuro History: Chronic vertigo Dermatologic History: Reports: Other (See Below) Other Dermatologic History: auricle of right ear w/out complication - Past Surgical History Musculoskeletal Surgical History: Reports: Knee Replacement, Other (See Below) Other Musculoskeletal Surgeries/Procedures:: B TKA noting several surgeries on the L knee Social & Family History - Tobacco Use Smoking Status *Q: Never Smoker - Caffeine Use Caffeine Use: Reports: Coffee - Recreational Drug Use Recreational Drug Use: No ED ROS GENERAL - Review of Systems Review Of Systems: Unable To Obtain (elderly and hard of hearing. Multiple positive systems reviewed but non acute) ED EXAM, GENERAL - Physical Exam Exam: See Below Exam Limited By: Other (Hard of Hearing and elderly) General Appearance: Alert (patient remained awake during my entire conversation and voiced opinion), WD/WN, No Apparent Distress, Thin, Other (very frail elderly appearing male with bright eyes) Eye Exam: Bilateral Eye: EOMI, Normal Inspection, PERRL Ears: Normal External Exam, Hearing Loss Nose: Normal Inspection, Normal Mucosa Throat/Mouth: Normal Inspection (dry mouth ), Normal Lips, Dysphagia Head: Normocephalic Neck: Non-Tender Respiratory/Chest: Lungs Clear, Normal Breath Sounds. No: Chest Non-Tender ( slight right midanterior chest wall tenderness. No contusions or abrasions noted. ) Cardiovascular: Normal Peripheral Pulses, No Edema (left greater than right no new), Diastolic Murmur, Systolic Murmur, Irregularly Irregular GI/Abdominal: Soft, Non-Tender Back Exam: Normal Inspection Extremities: Normal Inspection (no acute changes or limitations) Neurological: Alert, Oriented, CN II-XII Intact, Normal Cognition, No Motor/ Sensory Deficits, Abnormal Gait Psychiatric: Normal Affect, Normal Mood Skin Exam: Warm, Dry, Intact, Normal Color, No Rash Course - Vital Signs Last Recorded V/S: Last Vital Signs Temp 36.0 C 07/01/19 15:08 Pulse 49 L 07/01/19 15:08 Resp 20 07/01/19 15:08 BP 183/100 H 07/01/19 15:08 Pulse Ox 97 07/01/19 15:08 - Orders/Labs/Meds Orders: Active Orders 24 hr Category Date Time Status EKG Documentation Completion [RC] ASDIRECTED Care 07/01/19 14:15 Inactive EKG 12 Lead [EK] Routine Ther 07/01/19 14:14 Stop Req Meds: Medications Discontinued Medications Generic Name Dose Route Start Last Admin Trade Name Freq PRN Reason Stop Dose Admin Aspirin 324 mg 07/01/19 14:15 07/01/19 15:14 Aspirin PO 07/01/19 14:16 Not Given ONETIME ONE - Re-Assessments/Exams Free Text/Narrative Re-Assessment/Exam: Spent greater than [address] Chest, Abdomen and Pelvis which did not show any acute concerning findings. Patient's day time sleepiness , weigh loss with decreased appetite, difficulty with speech and swallowing likely due to dry mouth due to medications. Patient has had difficulty sleeping at night likely due to day night confusion with advanced age. Patient has been weak and difficulty ambulating in home. Discussed decompensation due to age which is not likely amenable to medical management. Discuss led of life care, hospice, dehydration and palliative care management for comfort rather tahn treatment. I offered to draw blood work and given IV fluids to help with signs of dehydration and poor appetite. I discuss Biotene to help with dry mouth. Megace to stimulate appetite to improve energy and weight. Primary Care provider to consider discontinuing medications due to lack of short term benefit, increased risk and limited long term care pharmacist benefit. Significant other and Neighbor seemed in agreement [facility] conversation and supportive of patient's comfort with limited future life span. Patient felt if he did not live to 86 to 86 he wound be ok with passing away. 07/01/19 16:00 Departure - Departure Time of Disposition: 16:30 Disposition: Home, Self-Care 01 Clinical Impression: Frail elderly, Weakness - Discharge Information Prescriptions: Saliva Substitution Combo No.9 [Biotene Pbf] 1,000 ml MM Q2HR PRN 30 Days #1 bottle PRN Reason: dry mouth Megestrol [Megace] 20 mg PO QID 30 Days #1 bottle Saliva Stimulant Comb. No.7 [Biotene Oralbalance] 42 gm MM TID 30 Days #100 gel..gram. Instructions: and Dying, Dehydration, Elderly, Palliative Care, End-of- Life Care, Hospice Referrals: Art Stover MD [Primary Care Provider] - Forms: ED Department Discharge Additional Instructions: 1. Megace 20mg liq every 6 hours QID top help stimulate appetite and improve energy and decreased weight loss. 2. Biotene Lozenge and mouth wash as directed to help with dry mouth, difficulty speaking and swallowing. 3. Primary Care Provider to consider discontinuing the following medications due to side effects and risks out weight the long term care pharmacist benefit of medications. Flomax, Coumadin, Nexium, metoprolol, Flonase and Losartan. Discussed with PCP. You may consider keep appointment with vascular surgeon but unsure if [place] is a good surgical candidate or surgery would be a safe options. - Problem List & Annotations (1) Frail elderly SNOMED Code(s): 372107218 Code(s): R54 - AGE-RELATED PHYSICAL DEBILITY Status: Acute (2) Weakness SNOMED Code(s): 84060855 Code(s): R53.1 - WEAKNESS Status: Acute
== END 2019-07-01 16:33 | disposition home or self-care (01) ==
LOC: JP.ED 14:10
DX: R54 Age-related physical debility (principal); I10 Essential (primary) hypertension; I48.91 Unspecified atrial fibrillation; M19.90 Unspecified osteoarthritis, unspecified site; Z88.5 Allergy status to narcotic agent; Z88.8 Allergy status to other drugs, medicaments and biological substances; Z79.01 Long term (current) use of anticoagulants; Z79.899 Other long term (current) drug therapy
CPT/HCPCS: 99284

== ENCOUNTER 2019-08-05 08:45 | Emergency (ER) | payer MEDICARE, BC ==
--- NOTE | 2019-08-05 09:34 | EDM.PDOC ---
ED HPI GENERAL MEDICAL PROBLEM - General Chief Complaint: General Stated Complaint: CONFUSSED AND ANXIOUS Time Seen by Provider: 08/05/19 09:33 Source of Information: Reports: Patient History Limitations: Reports: No Limitations - History of Present Illness INITIAL COMMENTS - FREE TEXT/NARRATIVE: pt is not sleeping at nite. He will lie down and then he sates he can,t lie flat because he is sob. He does have very sig swelling in his ankles. Onset: Today Duration: Hour(s): Location: Reports: Chest, Other (pt is having difficulty lying flat and he doesn ,t sleep. ) Associated Symptoms: Reports: Cough, Shortness of Breath - Related Data Allergies Allergy/AdvReac Type Severity Reaction Status Date / Time codeine Allergy Cannot Verified 08/05/19 09:09 Remember lisinopril Allergy Cannot Verified 08/05/19 09:09 Remember zolpidem tartrate AdvReac Confusion Verified 08/05/19 09:09 [From [facility]] Home Meds: Home Meds ALPRAZolam [Alprazolam] 0.25 mg PO DAILY 04/23/17 [History] Losartan [Cozaar] 75 mg PO DAILY 04/23/17 [History] Warfarin Sodium [Coumadin] 4.5 mg PO ASDIRECTED 04/23/17 [History] Warfarin [Coumadin] 3 mg PO ASDIRECTED 04/23/17 [History] traZODone 50 mg PO BEDTIME 04/23/17 [History] Albuterol Sulfate [Proair Hfa] 1 - 2 puff IH Q4H PRN 08/17/18 [History] Fluticasone Propionate [Flonase] 2 spray NASBOTH DAILY 08/17/18 [History] Metoprolol Succinate [Toprol XL 100mg] 100 mg PO DAILY 08/17/18 [History] Polyethylene Glycol 3350 [MiraLAX] 17 gm PO ASDIRECTED PRN 08/17/18 [History] Tamsulosin HCl [Flomax] 0.4 mg PO DAILY 08/17/18 [History] Brimonidine [Alphagan 0.2% Ophth Soln] 1 drop EYEBOTH ASDIRECTED 05/01/19 [ History] Esomeprazole Magnesium [Nexium] 40 mg PO DAILY 05/01/19 [History] Latanoprost 1 drop EYEBOTH ASDIRECTED 05/01/19 [History] Megestrol [Megace] 20 mg PO QID 30 Days #1 bottle 07/01/19 [Rx] Saliva Stimulant Comb. No.7 [Biotene Oralbalance] 42 gm MM TID 30 Days #100 gel..gram. 07/01/19 [Rx] Saliva Substitution Combo No.9 [Biotene Pbf] 1,000 ml MM Q2HR PRN 30 Days #1 bottle 07/01/19 [Rx] Albuterol [Ventolin HFA] 2 puff .XX ASDIRECTED 08/05/19 [History] Doxylamine Succinate [Unisom] 25 mg PO BEDTIME 08/05/19 [History] Lidocaine 1 each TP ASDIRECTED 08/05/19 [History] Melatonin 5 mg PO BEDTIME 08/05/19 [History] Simethicone 40 mg PO ASDIRECTED 08/05/19 [History] Past Medical History HEENT History: Reports: Hard of Hearing, Head, Impaired Vision Cardiovascular History: Reports: Afib, High Cholesterol, Hypertension Respiratory History: Reports: SOB Gastrointestinal History: Reports: Chronic Constipation, Other (See Below) Other Gastrointestinal History: Daily Miralax Genitourinary History: Reports: BPH Musculoskeletal History: Reports: Arthritis, Other (See Below) Other Musculoskeletal History: -Fall 02/19/2019 up to bathroom without FWW. -R lateral ankle sprain 02/2019 when stepping into passenger side of vehicle. 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 digits Neurological History: Reports: Vertigo, Other (See Below) Other Neuro History: Chronic vertigo Dermatologic History: Reports: Other (See Below) Other Dermatologic History: auricle of right ear w/out complication - Past Surgical History Musculoskeletal Surgical History: Reports: Knee Replacement, Other (See Below) Other Musculoskeletal Surgeries/Procedures:: B TKA noting several surgeries on the L knee Social & Family History - Tobacco Use Smoking Status *Q: Never Smoker - Caffeine Use Caffeine Use: Reports: None - Recreational Drug Use Recreational Drug Use: No ED ROS GENERAL - Review of Systems Review Of Systems: See Below Constitutional: Reports: Weakness, Other (poor appetite. ) HEENT: Reports: No Symptoms Respiratory: Reports: Shortness of Breath, Other (pt is having problems lying flat at nite. ) Cardiovascular: Reports: Other ( pt is sob when he lies flat at nite. ) GI/Abdominal: Reports: No Symptoms : Reports: No Symptoms Musculoskeletal: Reports: No Symptoms Skin: Reports: No Symptoms Neurological: Reports: No Symptoms ED EXAM, GENERAL - Physical Exam Exam: See Below Free Text/Narrative:: pt arrived with ahistory of not sleeping at nite and not being able to lie flat. he has markedly swollen ankles. The left is muchmore swollen than the rt. Exam Limited By: No Limitations General Appearance: Alert, Mild Distress Ears: Normal TMs Nose: Normal Inspection Throat/Mouth: Normal Inspection Head: Atraumatic Neck: Normal Inspection Respiratory/Chest: Decreased Breath Sounds Cardiovascular: Irregularly Irregular, Other (pt has a long history of atrial fib. ) GI/Abdominal: Soft (Male) Exam: Deferred Rectal (Males) Exam: Deferred Back Exam: Normal Inspection Extremities: Pedal Edema Neurological: Alert, Other (pt is quite vague with his answers. ) Course - Vital Signs Last Recorded V/S: Last Vital Signs Temp 36.4 C 08/05/19 09:15 Pulse 60 08/05/19 11:05 Resp 26 H 08/05/19 11:05 BP 168/80 H 08/05/19 11:05 Pulse Ox 94 L 08/05/19 11:05 - Orders/Labs/Meds Orders: Active Orders 24 hr Category Date Time Status EKG Documentation Completion [RC] ASDIRECTED Care 08/05/19 11:15 Active Sodium Chloride 0.9% [Saline Flush] Med 08/05/19 10:23 Active 10 ml FLUSH ASDIRECTED PRN Saline Lock Insert [OM.PC] Routine Oth 08/05/19 10:23 Ordered EKG 12 Lead [EK] Routine Ther 08/05/19 11:15 Ordered Medication Orders Sodium Chloride (Saline Flush) 10 ml FLUSH ASDIRECTED PRN PRN Reason: Keep Vein Open Last Admin: 08/05/19 10:59 Dose: 10 ml Labs: Laboratory Tests 08/05/19 08/05/19 08/05/19 Range/Units 09:32 09:46 09:46 WBC 6.3 (4.5-11.0) K/uL RBC 3.93 L (4.30-5.90) M/uL Hgb 12.0 (12.0-15.0) g/dL Hct 39.3 L (40.0-54.0) % MCV 100 H (80-98) fL MCH 31 (27-31) pg MCHC 31 L (32-36) % Plt Count 135 L (150-400) K/uL Neut % (Auto) 67 H (36-66) % Lymph % (Auto) 24 (24-44) % [place] % (Auto) 7 H (2-6) % Eos % (Auto) 2 (2-4) % Baso % (Auto) 0 (0-1) % PT (9.5-12.0) sec INR (0.80-1.20) D-Dimer, Quantitative (0.0-400.0) ng/mL Sodium 144 (140-148) mmol/L Potassium 3.6 (3.6-5.2) mmol/L Chloride 106 (100-108) mmol/L Carbon Dioxide 33 H (21-32) mmol/L Anion Gap 8.6 (5.0-14.0) mmol/L BUN 17 (7-18) mg/dL Creatinine 0.7 L (0.8-1.3) mg/dL Est Cr Clr Drug Dosing 74.74 mL/min Estimated GFR (MDRD) > 60 (>60) Glucose 96 (74-106) mg/dL Calcium 8.5 (8.5-10.1) mg/dL Total Bilirubin 0.8 (0.2-1.0) mg/dL AST 17 (15-37) U/L ALT 17 (12-78) U/L Alkaline Phosphatase 69 (46-116) U/L NT-Pro-B Natriuret Pep 2825 H (5-450) pg/mL Total Protein 6.7 (6.4-8.2) g/dL Albumin 2.8 L (3.4-5.0) g/dL Globulin 3.9 H (2.3-3.5) g/dL Albumin/Globulin Ratio 0.7 L (1.2-2.2) Urine Color (YELLOW) Urine Appearance (CLEAR) Urine pH (5.0-8.0) Ur Specific [place] (1.008-1.030) Urine Protein (NEGATIVE) mg/dL Urine Glucose (UA) (NEGATIVE) mg/dL Urine Ketones (NEGATIVE) mg/dL Urine Occult Blood (NEGATIVE) Urine Nitrite (NEGATIVE) Urine Bilirubin (NEGATIVE) Urine Urobilinogen (0.2-1.0) EU/dL Ur Leukocyte Esterase (NEGATIVE) Urine RBC (0-5) Urine WBC (0-5) Ur Epithelial Cells Amorphous Sediment Urine Bacteria Urine Mucus 08/05/19 08/05/19 08/05/19 Range/Units 09:46 10:25 11:19 WBC (4.5-11.0) K/uL RBC (4.30-5.90) M/uL Hgb (12.0-15.0) g/dL Hct (40.0-54.0) % MCV (80-98) fL MCH (27-31) pg MCHC (32-36) % Plt Count (150-400) K/uL Neut % (Auto) (36-66) % Lymph % (Auto) (24-44) % [place] % (Auto) (2-6) % Eos % (Auto) (2-4) % Baso % (Auto) (0-1) % PT 39.7 H (9.5-12.0) sec INR 3.97 H (0.80-1.20) D-Dimer, Quantitative 498 H (0.0-400.0) ng/mL Sodium (140-148) mmol/L Potassium (3.6-5.2) mmol/L Chloride (100-108) mmol/L Carbon Dioxide (21-32) mmol/L Anion Gap (5.0-14.0) mmol/L BUN (7-18) mg/dL Creatinine (0.8-1.3) mg/dL Est Cr Clr Drug Dosing mL/min Estimated GFR (MDRD) (>60) Glucose (74-106) mg/dL Calcium (8.5-10.1) mg/dL Total Bilirubin (0.2-1.0) mg/dL AST (15-37) U/L ALT (12-78) U/L Alkaline Phosphatase (46-116) U/L NT-Pro-B Natriuret Pep (5-450) pg/mL Total Protein (6.4-8.2) g/dL Albumin (3.4-5.0) g/dL Globulin (2.3-3.5) g/dL Albumin/Globulin Ratio (1.2-2.2) Urine Color Yellow (YELLOW) Urine Appearance Clear (CLEAR) Urine pH 5.5 (5.0-8.0) Ur Specific [place] 1.025 (1.008-1.030) Urine Protein 30 H (NEGATIVE) mg/dL Urine Glucose (UA) Negative (NEGATIVE) mg/dL Urine Ketones Negative (NEGATIVE) mg/dL Urine Occult Blood Trace-intact H (NEGATIVE) Urine Nitrite Negative (NEGATIVE) Urine Bilirubin Small H (NEGATIVE) Urine Urobilinogen 1.0 (0.2-1.0) EU/dL Ur Leukocyte Esterase Negative (NEGATIVE) Urine RBC 0-5 (0-5) Urine WBC Not seen (0-5) Ur Epithelial Cells Not seen Amorphous Sediment Not seen Urine Bacteria Not seen Urine Mucus Moderate Meds: Medications Generic Name Dose Route Start Last Admin Trade Name Freq PRN Reason Stop Dose Admin Sodium Chloride 10 ml 08/05/19 10:23 08/05/19 10:59 Saline Flush FLUSH 10 ml ASDIRECTED PRN Administration Keep Vein Open Discontinued Medications Generic Name Dose Route Start Last Admin Trade Name Freq PRN Reason Stop Dose Admin Furosemide 60 mg 08/05/19 10:23 08/05/19 10:59 Lasix IVPUSH 08/05/19 10:24 60 mg ONETIME ONE Administration Departure - Departure Time of Disposition: 12:24 Disposition: Home, Self-Care 01 Condition: Fair Clinical Impression: CHF (congestive heart failure), Acute insomnia, Weight loss - Discharge Information Instructions: Insomnia, Heart Failure, [id number] Referrals: Art Stover MD [Primary Care Provider] - Forms: ED Department Discharge Care Plan Goals: get a wedge pillow to elevate his head, use at least one container of boost daily-- try making a small milk shake with this to make it taste better. Encourage protein intake, push water-- add crystal lite to the water to make it taste better, lasix 20mg 1 tab daily, Increase the trazadone to 100mg hs, use this with melatonin with the trazadone about 1 hr ahead of going to sleep. Avoid the over the counter sleep aids. Give the lasix in the Am Feed the pt several small meals daily. Hold coumadin for a day because his INR is high then resume his usual dose and have his INR rechecked in 4-5 days. needs to set up the meds for the week. rtc for a echo cardiogram appt with Elmo Unger in 4-5 days. - My Orders Last 24 Hours: My Active Orders 08/05/19 10:23 Sodium Chloride 0.9% [Saline Flush] 10 ml FLUSH ASDIRECTED PRN Saline Lock Insert [OM.PC] Routine 08/05/19 11:15 EKG Documentation Completion [RC] ASDIRECTED EKG 12 Lead [EK] Routine - Assessment/Plan Last 24 Hours: My Active Orders 08/05/19 10:23 Sodium Chloride 0.9% [Saline Flush] 10 ml FLUSH ASDIRECTED PRN Saline Lock Insert [OM.PC] Routine 08/05/19 11:15 EKG Documentation Completion [RC] ASDIRECTED EKG 12 Lead [EK] Routine
[2019-08-05] MEDS ORDERED: Sodium Chloride 0.9% 10 ML Syringe FLUSH PRN (10:23)
[2019-08-05] MEDS ORDERED: Furosemide 40 MG/4 ML VIAL IVPUSH ONE (10:23)
--- NOTE | 2019-08-05 10:32 | CRLCR ---
HISTORY: Shortness of breath. TECHNIQUE: Two views of the chest. COMPARISON: 05/01/2019. FINDINGS: Cardiomegaly as before. Tortuous or possibly dilated thoracic aorta as before. Opacity in the right paratracheal region may relate to vascular tortuosity, vascular dilatation, thyroid goiter versus other stable process. On the lateral film, there is a increased opacity within one of the lower lobes, likely the left lower lobe which appears unchanged from the prior radiograph. This may relate to persistent infiltrate, atelectasis or confluent fibrosis. There is no pneumothorax or significant pleural effusion. IMPRESSION: 1. Chronic infiltrate, atelectasis versus confluent fibrosis within one of the lower lobes on the lateral film, likely the left lower lobe. 2. Cardiomegaly as before. 3. No pulmonary edema. Dictated by Sandro Ng MD @ 08/05/2019 10:31:39 AM Dictated by: Sandro Ng MD @ 08/05/2019 10:31:45 (Electronically Signed)
[2019-08-05 11:06] VITALS: BP 168/80; PULSE 60
== END 2019-08-05 13:21 | disposition home or self-care (01) ==
LOC: JP.ED 08:45
DX: I11.0 Hypertensive heart disease with heart failure (principal); I50.9 Heart failure, unspecified; G47.00 Insomnia, unspecified; R63.4 Abnormal weight loss; I48.91 Unspecified atrial fibrillation; E78.00 Pure hypercholesterolemia, unspecified; M19.90 Unspecified osteoarthritis, unspecified site; Z88.5 Allergy status to narcotic agent; Z88.8 Allergy status to other drugs, medicaments and biological substances; Z79.899 Other long term (current) drug therapy
CPT/HCPCS: 36415; 71046; 80053; 81001; 83880; 85025; 85379; 85610; 93005; 96374; 99285; J1940; 99284

== ENCOUNTER 2019-08-07 03:49 | Observation (INO) | payer MEDICARE, BC ==
--- NOTE | 2019-08-07 04:32 | EDM.PDOC ---
<OfficerKj - Last Filed: 08/07/19 05:47> ED HPI GENERAL MEDICAL PROBLEM - General Chief Complaint: General Stated Complaint: MEDICAL VIA [facility] Time Seen by Provider: 08/07/19 04:04 Source of Information: Reports: Patient, EMS, Family, RN Notes Reviewed History Limitations: Reports: Physical Impairment - History of Present Illness INITIAL COMMENTS - FREE TEXT/NARRATIVE: 84-year-old gentleman presents to emergency department today via EMS services for difficulty with speech, family is present states he had problems yesterday with speaking it would come and go but today his speech is consistently poor. I can understand some words he tells me that he is able to formulate words however they come out wrong and he's having difficulty articulating. He describes no other loss of weakness, was recently in the emergency department for exacerbation of congestive heart failure. However when I explained to his that I am concerned about a cerebrovascular accident with a difficulty speech and want to proceed with the workup she declined did not want any blood tests done and did not want any imaging studies done, wants to do watchful waiting at this time. He asked for water we felt this to be not appropriate because of his concern for difficulty with swallowing but his insists, therefore we valerie her wishes denies pain Pain Score (Numeric/FACES): 0 - Related Data Allergies Allergy/AdvReac Type Severity Reaction Status Date / Time codeine Allergy Cannot Verified 08/07/19 04:39 Remember lisinopril Allergy Cannot Verified 08/07/19 04:39 Remember zolpidem tartrate AdvReac Confusion Verified 08/07/19 04:39 [From Amy] Home Meds: Home Meds ALPRAZolam [Alprazolam] 0.25 mg PO DAILY 04/23/17 [History] Losartan [Cozaar] 75 mg PO DAILY 04/23/17 [History] Warfarin Sodium [Coumadin] 4.5 mg PO ASDIRECTED 04/23/17 [History] Warfarin [Coumadin] 3 mg PO ASDIRECTED 04/23/17 [History] traZODone 100 mg PO BEDTIME 04/23/17 [History] Albuterol Sulfate [Proair Hfa] 1 - 2 puff IH Q4H PRN 08/17/18 [History] Fluticasone Propionate [Flonase] 2 spray NASBOTH DAILY 08/17/18 [History] Metoprolol Succinate [Toprol XL 100mg] 100 mg PO DAILY 08/17/18 [History] Polyethylene Glycol 3350 [MiraLAX] 17 gm PO ASDIRECTED PRN 08/17/18 [History] Tamsulosin HCl [Flomax] 0.4 mg PO DAILY 08/17/18 [History] Brimonidine [Alphagan 0.2% Ophth Soln] 1 drop EYEBOTH ASDIRECTED 05/01/19 [ History] Esomeprazole Magnesium [Nexium] 40 mg PO DAILY 05/01/19 [History] Latanoprost 1 drop EYEBOTH ASDIRECTED 05/01/19 [History] Megestrol [Megace] 20 mg PO QID 30 Days #1 bottle 07/01/19 [Rx] Saliva Stimulant Comb. No.7 [Biotene Oralbalance] 42 gm MM TID 30 Days #100 gel..gram. 07/01/19 [Rx] Saliva Substitution Combo No.9 [Biotene Pbf] 1,000 ml MM Q2HR PRN 30 Days #1 bottle 07/01/19 [Rx] Albuterol [Ventolin HFA] 2 puff .XX ASDIRECTED 08/05/19 [History] Doxylamine Succinate [Unisom] 25 mg PO BEDTIME 08/05/19 [History] Lidocaine 1 each TP ASDIRECTED 08/05/19 [History] Melatonin 5 mg PO BEDTIME 08/05/19 [History] Simethicone 40 mg PO ASDIRECTED 08/05/19 [History] Furosemide 20 mg PO DAILY 08/07/19 [History] Past Medical History HEENT History: Reports: Hard of Hearing, Head, Impaired Vision Cardiovascular History: Reports: Afib, High Cholesterol, Hypertension Respiratory History: Reports: SOB Gastrointestinal History: Reports: Chronic Constipation, Other (See Below) Other Gastrointestinal History: Daily Miralax Genitourinary History: Reports: BPH Musculoskeletal History: Reports: Arthritis, Other (See Below) Other Musculoskeletal History: -Fall 02/19/2019 up to bathroom without FWW. -R lateral ankle sprain 02/2019 when stepping into passenger side of vehicle. 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/5th digits Neurological History: Reports: Vertigo, Other (See Below) Other Neuro History: Chronic vertigo Dermatologic History: Reports: Other (See Below) Other Dermatologic History: auricle of right ear w/out complication - Past Surgical History Musculoskeletal Surgical History: Reports: Knee Replacement, Other (See Below) Other Musculoskeletal Surgeries/Procedures:: B TKA noting several surgeries on the L knee Social & Family History - Caffeine Use Caffeine Use: Reports: None ED ROS GENERAL - Review of Systems Review Of Systems: See Below Constitutional: Reports: No Symptoms HEENT: Reports: No Symptoms Respiratory: Reports: No Symptoms Cardiovascular: Reports: No Symptoms GI/Abdominal: Reports: No Symptoms : Reports: No Symptoms Musculoskeletal: Reports: No Symptoms Skin: Reports: No Symptoms Neurological: Reports: Trouble Speaking, Change in Speech ED EXAM, GENERAL - Physical Exam Exam: See Below Free Text/Narrative:: General: Elderly male, not in any distress, alert HEENT: head is atraumatic normocephalic, eyes pupils equal round reactive to light, sclera clear no conjunctivitis appreciated. Ears tympanic membranes clear and [place] landmarks and light reflex are present bilaterally canals are clear. Nose no septal deviation, nares are clear, no blood present. Mouth mucosa is moist and pink no erythema or exudate noted in soft palate, tongue is midline uvula is midline , dentition is intact. Neck: Supple no thyromegaly no tracheal deviation. Nodes: Cervical nodes subclavicular nodes nontender no palpable lymphadenopathy noted. Lungs: clear to auscultation bilaterally with symmetrical respirations, no adventitious noise appreciated. CV: Irregularly irregular rate and rhythm S1 and S2 appreciated no murmurs rubs or gallops noted. Abdomen: Soft, nontender, no palpable masses or organomegaly appreciated, no distention no guarding bowel sounds are present, ]. Neuro: Cranial nerves II test with pupillary light reflex 5 mm to 3 mm bilaterally, CN III test pupillary constriction, lid elevation and eye abduction bilaterally, CN IV downward movement of eyes bilaterally, CN V good jaw movement, CN lateral deviation of the eyes bilaterally to finger movement , CN VII symmetrical smile shows teeth without difficulty, CN VIII pass finger rub to ears bilaterally, CN IX adequate voice and tone, CN X speech is incomprehensible, CN XI can shrug shoulders without difficulty, CN XII tongue deviates to the left, power is 5 out 5 in upper and lower extremities, no dysdiadochokinesis, Extremities: Pedal edema appreciated bilaterally, pedal pulse is +2. Course - Vital Signs Last Recorded V/S: Last Vital Signs Temp 36.2 C 08/07/19 04:15 Pulse 63 08/07/19 04:15 Resp 24 H 08/07/19 04:15 BP 96/62 08/07/19 04:15 Pulse Ox 94 L 08/07/19 04:15 - Orders/Labs/Meds Labs: Laboratory Tests 08/07/19 08/07/19 08/07/19 Range/Units 07:28 07:28 07:28 WBC 8.4 (4.5-11.0) K/uL RBC 4.23 L (4.30-5.90) M/uL Hgb 13.1 (12.0-15.0) g/dL Hct 42.6 (40.0-54.0) % MCV 101 H (80-98) fL MCH 31 (27-31) pg MCHC 31 L (32-36) % Plt Count 161 (150-400) K/uL Neut % (Auto) 71 H (36-66) % Lymph % (Auto) 19 L (24-44) % [place] % (Auto) 9 H (2-6) % Eos % (Auto) 1 L (2-4) % Baso % (Auto) 0 (0-1) % PT 36.5 H (9.5-12.0) sec INR 3.64 H (0.80-1.20) Sodium 145 (140-148) mmol/L Potassium 3.7 (3.6-5.2) mmol/L Chloride 105 (100-108) mmol/L Carbon Dioxide 36 H (21-32) mmol/L Anion Gap 7.7 (5.0-14.0) mmol/L BUN 26 H D (7-18) mg/dL Creatinine 0.8 (0.8-1.3) mg/dL Est Cr Clr Drug Dosing 65.40 mL/min Estimated GFR (MDRD) > 60 (>60) Glucose 99 (74-106) mg/dL Calcium 8.6 (8.5-10.1) mg/dL Meds: Medications Discontinued Medications Generic Name Dose Route Start Last Admin Trade Name Hola PRN Reason Stop Dose Admin Acetaminophen 650 mg 08/07/19 06:01 08/07/19 06:29 Tylenol PO 08/07/19 06:02 650 mg NOW ONE Administration - Re-Assessments/Exams Free Text/Narrative Re-Assessment/Exam: 08/07/19 05:47 I had a long discussion with the family about an evaluation which included blood work and imaging studies they refused they felt that I should be able to make a diagnosis with the blood work that has been taken in the past as well as prior imaging studies last CT scan of brain MRI was done in February of this year. They asked if I would consult Dr. Presley of which I stated I would not as she is not on and is not her shift however she is coming on in a couple hours and they elected to wait and discussed the case with her. Departure - Departure Disposition: Admitted As Inpatient 65 Clinical Impression: Slurred speech, CHF (congestive heart failure), Atrial fibrillation - Discharge Information Referrals: PCP,None [Primary Care Provider] - Forms: ED Department Discharge Care Plan Goals: pt will be admitted for a observation. His is considering hospice care. <Elvia Presley - Last Filed: 08/07/19 08:49> Course - Orders/Labs/Meds Labs: Laboratory Tests 08/07/19 08/07/19 08/07/19 Range/Units 07:28 07:28 07:28 WBC 8.4 (4.5-11.0) K/uL RBC 4.23 L (4.30-5.90) M/uL Hgb 13.1 (12.0-15.0) g/dL Hct 42.6 (40.0-54.0) % MCV 101 H (80-98) fL MCH 31 (27-31) pg MCHC 31 L (32-36) % Plt Count 161 (150-400) K/uL Neut % (Auto) 71 H (36-66) % Lymph % (Auto) 19 L (24-44) % [place] % (Auto) 9 H (2-6) % Eos % (Auto) 1 L (2-4) % Baso % (Auto) 0 (0-1) % PT 36.5 H (9.5-12.0) sec INR 3.64 H (0.80-1.20) Sodium 145 (140-148) mmol/L Potassium 3.7 (3.6-5.2) mmol/L Chloride 105 (100-108) mmol/L Carbon Dioxide 36 H (21-32) mmol/L Anion Gap 7.7 (5.0-14.0) mmol/L BUN 26 H D (7-18) mg/dL Creatinine 0.8 (0.8-1.3) mg/dL Est Cr Clr Drug Dosing 65.40 mL/min Estimated GFR (MDRD) > 60 (>60) Glucose 99 (74-106) mg/dL Calcium 8.6 (8.5-10.1) mg/dL - Re-Assessments/Exams Free Text/Narrative Re-Assessment/Exam: 08/07/19 07:18 pt had a echo whioch showed a ejection of 40 % moderate to severe aortic stenosis 08/07/19 08:47 pt had a cat scan of the head which was neg for acute findings. His lab work looked ok. He is more alert now and his speech is better. His mouth does appear very dry. Departure - Departure Time of Disposition: 08:48 Condition: Fair
[2019-08-07] MEDS ORDERED: Acetaminophen 325 MG Tab PO ONE (06:01)
--- NOTE | 2019-08-07 08:13 | CRLCT ---
INDICATION: Slurred speech. Sleepiness. TECHNIQUE: Head CT without contrast. COMPARISON: 03/02/2019 FINDINGS: CSF spaces: Within normal limits for age. Brain parenchyma and extra-axial spaces: There are nonspecific low attenuation white matter changes consistent with chronic microvascular disease. No sign of mass, hemorrhage, or midline shift. Skull base and calvarium: The visualized paranasal sinuses and mastoid air cells demonstrate no acute or significant findings. The visualized orbits are grossly unremarkable. No skull fractures. IMPRESSION: No acute or significant findings.No sign of acute CVA or hemorrhage. Dictated by Alberto Mcfarlane MD @ 08/07/2019 8:11:04 AM Please note that all CT scans at this facility use dose modulation, iterative reconstruction, and/or weight-based dosing when appropriate to reduce radiation dose to as low as reasonably achievable. Dictated by: Alberto Mcfarlane MD @ 08/07/2019 08:11:18 (Electronically Signed)
--- NOTE | 2019-08-07 10:59 | PCM.HP.2 ---
H&P History of Present Illness - General Date of Service: 08/07/19 Admit Problem/Dx: Admission Diagnosis/Problem Admission Diagnosis/Problem Weakness Source of Information: Patient, Family, Provider History Limitations: Reports: No Limitations - History of Present Illness Initial Comments - Free Text/Narative: CC: He couldn't talk HPI: Art presents to the emergency room this morning after an episode around 3 AM where his significant other found that he was very weak, confused and had difficulty talking. His speech was slurred and extremely difficult to understand. He had been feeling well prior to the onset of symptoms. He seems to be doing better since arrival to the emergency room but still has slurred speech. He does not complain of headache. He does not feel short of breath. He feels weak all over but no particular side or extremity is weaker than any other. Early this morning he had some difficulty swallowing and was coughing afterwards but has been able to eat some breakfast and drink some liquids without difficulty. He has not had any fevers. He has not noticed any change in his bladder habits. Initially there was concern for cerebrovascular accident versus TIA but significant other was not interested in transfer for aggressive workup or intervention. He was in the emergency room a couple of days ago for shortness of breath and orthopnea and does feel better after diuresis. Echocardiogram was completed yesterday and showed an ejection fraction of 40-45 % as well as moderately severe aortic insufficiency. Also diastolic dysfunction was noted. He has lost more than 50 pounds in the last six months. Workup in the emergency room included laboratory studies which were fairly unremarkable. Head CT did not show any acute issues but did show some mild volume loss. Patient seems to be improving so far. He will be admitted for additional observation, physical therapy and hospice consultation. denies pain Pain Score (Numeric/FACES): 0 - Related Data Allergies/Adverse Reactions: Allergies Allergy/AdvReac Type Severity Reaction Status Date / Time codeine Allergy Cannot Verified 08/07/19 04:39 Remember lisinopril Allergy Cannot Verified 08/07/19 04:39 Remember zolpidem tartrate AdvReac Confusion Verified 08/07/19 04:39 [From Amy] Home Medications: Home Meds ALPRAZolam [Alprazolam] 0.25 mg PO DAILY 04/23/17 [History] Losartan [Cozaar] 75 mg PO DAILY 04/23/17 [History] Warfarin Sodium [Coumadin] 4.5 mg PO ASDIRECTED 04/23/17 [History] Warfarin [Coumadin] 3 mg PO ASDIRECTED 04/23/17 [History] traZODone 100 mg PO BEDTIME 04/23/17 [History] Albuterol Sulfate [Proair Hfa] 1 - 2 puff IH Q4H PRN 08/17/18 [History] Fluticasone Propionate [Flonase] 2 spray NASBOTH DAILY 08/17/18 [History] Metoprolol Succinate [Toprol XL 100mg] 100 mg PO DAILY 08/17/18 [History] Polyethylene Glycol 3350 [MiraLAX] 17 gm PO ASDIRECTED PRN 08/17/18 [History] Tamsulosin HCl [Flomax] 0.4 mg PO DAILY 08/17/18 [History] Brimonidine [Alphagan 0.2% Ophth Soln] 1 drop EYEBOTH ASDIRECTED 05/01/19 [ History] Esomeprazole Magnesium [Nexium] 40 mg PO DAILY 05/01/19 [History] Latanoprost 1 drop EYEBOTH ASDIRECTED 05/01/19 [History] Megestrol [Megace] 20 mg PO QID 30 Days #1 bottle 07/01/19 [Rx] Saliva Stimulant Comb. No.7 [Biotene Oralbalance] 42 gm MM TID 30 Days #100 gel..gram. 07/01/19 [Rx] Saliva Substitution Combo No.9 [Biotene Pbf] 1,000 ml MM Q2HR PRN 30 Days #1 bottle 07/01/19 [Rx] Albuterol [Ventolin HFA] 2 puff .XX ASDIRECTED 08/05/19 [History] Doxylamine Succinate [Unisom] 25 mg PO BEDTIME 08/05/19 [History] Lidocaine 1 each TP ASDIRECTED 08/05/19 [History] Melatonin 5 mg PO BEDTIME 08/05/19 [History] Simethicone 40 mg PO ASDIRECTED 08/05/19 [History] Furosemide 20 mg PO DAILY 08/07/19 [History] Past Medical History HEENT History: Reports: Hard of Hearing, Head, Impaired Vision Cardiovascular History: Reports: Afib, High Cholesterol, Hypertension Respiratory History: Reports: SOB Gastrointestinal History: Reports: Chronic Constipation, Other (See Below) Other Gastrointestinal History: Daily Miralax Genitourinary History: Reports: BPH Musculoskeletal History: Reports: Arthritis, Other (See Below) Other Musculoskeletal History: -Fall 02/19/2019 up to bathroom without FWW. -R lateral ankle sprain 02/2019 when stepping into passenger side of vehicle. 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-strength and thumb opposition back to 4th/5th digits Neurological History: Reports: Vertigo, Other (See Below) Other Neuro History: Chronic vertigo Dermatologic History: Reports: Other (See Below) Other Dermatologic History: auricle of right ear w/out complication - Past Surgical History Musculoskeletal Surgical History: Reports: Knee Replacement, Other (See Below) Other Musculoskeletal Surgeries/Procedures:: B TKA noting several surgeries on the L knee Social & Family History - Family History Cardiac: Reports: CAD - Tobacco Use Smoking Status *Q: Never Smoker - Caffeine Use Caffeine Use: Reports: None - Alcohol Use Alcohol Use History: No - Recreational Drug Use Recreational Drug Use: No H&P Review of Systems - Review of Systems: Review Of Systems: See Below Free Text/Narrative: A complete 12 point review of systems was obtained. Pertinent positives and negatives are noted in the history of present illness. All other systems were reviewed and were negative except as noted. Exam - Exam Exam: See Below - Vital Signs Vital Signs: Last Vital Signs Temp 36.2 C 08/07/19 04:15 Pulse 53 L 08/07/19 10:57 Resp 15 08/07/19 10:57 BP 118/55 L 08/07/19 10:57 Pulse Ox 94 L 08/07/19 04:15 Weight: 68.492 kg - Exam Quality Assessment: No: Supplemental Oxygen General: Alert, Cooperative, Lethargic. No: Mild Distress HEENT: Conjunctiva Clear. No: Mucosa Moist & Dibble (dry), Scleral Icterus Neck: Supple, Trachea Midline. No: Lymphadenopathy Lungs: Clear to Auscultation, Normal Respiratory Effort Cardiovascular: Regular Rate, Irregular Rhythm, Systolic Murmur, Diastolic Murmur GI/Abdominal Exam: Normal Bowel Sounds, Soft, Non-Tender, No Distention Extremities: Pedal Edema (Mild pitting edema of left ankle). No: Increased Warmth Skin: Warm, Dry Neuro Extensive - Mental Status: Alert, Normal Mood/Affect, Nl Response to Commands Neuro Extensive - Motor, Sensory, Reflexes: Dysarthria (Mild slurring of speech) . No: Tongue Deviation (L), Tongue Deviation (R), Facial Palsy (R), Facial palsy (L), Abnormal Motor, Tremor Psychiatric: Alert, Normal Affect. No: Agitated - Patient Data Lab Results Last 24 hrs: Laboratory Results - last 24 hr 08/07/19 08/07/19 08/07/19 Range/Units 07:28 07:28 07:28 WBC 8.4 (4.5-11.0) K/uL RBC 4.23 L (4.30-5.90) M/uL Hgb 13.1 (12.0-15.0) g/dL Hct 42.6 (40.0-54.0) % MCV 101 H (80-98) fL MCH 31 (27-31) pg MCHC 31 L (32-36) % Plt Count 161 (150-400) K/uL Neut % (Auto) 71 H (36-66) % Lymph % (Auto) 19 L (24-44) % Saunders % (Auto) 9 H (2-6) % Eos % (Auto) 1 L (2-4) % Baso % (Auto) 0 (0-1) % PT 36.5 H (9.5-12.0) sec INR 3.64 H (0.80-1.20) Sodium 145 (140-148) mmol/L Potassium 3.7 (3.6-5.2) mmol/L Chloride 105 (100-108) mmol/L Carbon Dioxide 36 H (21-32) mmol/L Anion Gap 7.7 (5.0-14.0) mmol/L BUN 26 H D (7-18) mg/dL Creatinine 0.8 (0.8-1.3) mg/dL Est Cr Clr Drug Dosing 65.40 mL/min Estimated GFR (MDRD) > 60 (>60) Glucose 99 (74-106) mg/dL Calcium 8.6 (8.5-10.1) mg/dL Result Diagrams: 08/07/19 07:08/07/19 07:28 Imaging Impressions Last 24 hrs: Head CT - images personally reviewed - mild volume loss but no acute findings. No mass, bleed or stroke. *Q Meaningful Use (ADM) - VTE Risk Assess *Q Each Risk Factor Represents 1 Point: Swollen Legs, Current, Obesity ( BMI > 25 kg/m2), Congestive heart failure (CHF) Total Score 1 Point Risk Factors: 3 Each Risk Factor Represents 2 Points: None Total Score 2 Point Risk Factors: 0 Each Risk Factor Represents 3 Points: Age 75 Years or Greater Total Score 3 Point Risk Factors: 3 Each Risk Factor Represents 5 Points: None Total Score 5 Point Risk Factors: 0 Venous Thromboembolism Risk Factor Score *Q: 6 - Problem List (1) Slurred speech SNOMED Code(s): 425133616 ICD Code: R47.81 - SLURRED SPEECH Status: Acute Current Visit: Yes (2) Weakness SNOMED Code(s): 21324569 ICD Code: R53.1 - WEAKNESS Status: Acute Current Visit: No (3) CHF (congestive heart failure) SNOMED Code(s): 93623343 ICD Code: I50.9 - HEART FAILURE, UNSPECIFIED Status: Chronic Current Visit: Yes Qualifiers: Heart failure type: combined systolic and diastolic Heart failure chronicity: chronic Qualified Code(s): I50.42 - Chronic combined systolic ( congestive) and diastolic (congestive) heart failure (4) Chronic atrial fibrillation SNOMED Code(s): 478676919 ICD Code: I48.2 - CHRONIC ATRIAL FIBRILLATION Status: Chronic Current Visit: No Problem List Initiated/Reviewed/Updated: Yes Orders Last 24hrs: Active Orders 24 hr Category Date Time Status Patient Status Manage Transfer [TRANSFER] Routine ADT 08/07/19 10:54 Ordered Resuscitation Status Routine Resus Stat 08/07/19 10:56 Ordered Assessment/Plan Comment:: ASSESSMENT AND PLAN - Generalized weakness and slurred speech - no evidence for infection that I can find. I'm suspicious this may be related to medications with trazodone seeming to be the most likely culprit. His significant other reports that when he has trouble sleeping he will take extra medication that she's not aware that he did yesterday. His trazodone was recently increased. Neurologic exam otherwise nonfocal. -Discontinue trazodone -Physical therapy -Trial of mirtazapine at bedtime Combined systolic and diastolic congestive heart failure - Appears compensated at this time. He has mildly reduced ejection fraction at 40-45% as well as moderately severe aortic insufficiency and diastolic failure. He has borderline bradycardia and would benefit from a reduction in his beta qamar. With his severe aortic insufficiency, poor functional status and reduced ejection fraction I think he would benefit from at least consideration regarding hospice. He has lost more than 50 pounds over 6 months and has been steadily declining. Family is interested in hospice information meeting. -Decrease metoprolol to 50 mg daily -Continue furosemide -Hospice referral Chronic atrial fibrillation - He is chronically anticoagulated. INR slightly supratherapeutic. He has episodes of bradycardia with heart rates that dropped down into the 40s. -Hold warfarin today and recheck INR in the morning -Decrease beta qamar Maintenance issues - - DVT prophylaxis - warfarin - GI prophylaxis - PPI - Nutrition - heart healthy diet - Obrien catheter - not indicated CODE STATUS - DNR/DNI Admission justification - patient will be referred observation status for medication adjustments and physical therapy. Disposition - I would anticipate discharge home, possibly with home care or possibly with hospice Primary care physician - Dr. Jolanta Bridges M.D. - Mortality Measure Prognosis:: Poor
[2019-08-07] MEDS ORDERED: Magnesium Hydroxide 400 MG/5 ML Susp 30 ML Cup PO PRN (11:26)
[2019-08-07] MEDS ORDERED: BRIMONIDINE EYEBOTH SCH (11:26)
[2019-08-07] MEDS ORDERED: Ondansetron 4 MG Tab.DIS PO PRN (11:26)
[2019-08-07] MEDS ORDERED: Albuterol 8 GM Inhaler INH PRN (11:26)
[2019-08-07] MEDS ORDERED: Ondansetron 4 MG/2 ML SDV IV PRN (11:26)
[2019-08-07] MEDS ORDERED: ALPRAZolam 0.25 MG Tab PO PRN (11:26)
[2019-08-07] MEDS: Acetaminophen 325 MG Tab PO PRN (12:12)
[2019-08-07] MEDS: Melatonin 3 MG Tab PO SCH (22:23)
[2019-08-08] MEDS: Acetaminophen 325 MG Tab PO PRN (07:33)
[2019-08-08] MEDS: Mirtazapine 15 MG Tab PO SCH ×2 (08:46→21:14)
[2019-08-08] MEDS: METOPROLOL 100 MG PO SCH (08:47)
[2019-08-08] MEDS: Furosemide 20 MG Tab*POM PO SCH (08:48)
[2019-08-08] MEDS: LOSARTAN 50 MG PO SCH (08:49)
[2019-08-08] MEDS: FLUTICASONE PROPIONATE NASBOTH SCH (08:49)
[2019-08-08] MEDS ORDERED: Pantoprazole 40 MG Tab.CR PO SCH (09:00)
[2019-08-08] MEDS ORDERED: MEGESTROL 40 MG/ML PO SCH (10:00)
[2019-08-08] MEDS: NEXIUM 20 MG PO SCH (12:07)
[2019-08-08] MEDS ORDERED: BRIMONIDINE 0.2% EYEBOTH SCH (13:00)
[2019-08-08] MEDS: BRIMONIDINE 0.2% EYEBOTH SCH ×2 (13:35→21:11)
--- NOTE | 2019-08-08 14:21 | PCM.PN ---
- General Info Date of Service: 08/08/19 Subjective Update: There were no acute issues overnight. Speech is still slurred but improving. He did not sleep at all last night. Feels tired today but no nap. Otherwise he feels ok. Strength is near baseline. Vitals have been stable. He and his significant other are considering hospice after hospital discharge. Functional Status: Reports: Pain Controlled, Tolerating Diet - Review of Systems General: Reports: Weakness Neurological: Reports: Trouble Speaking (slurred ) - Patient Data Vitals - Most Recent: Last Vital Signs Temp 37.7 C 08/08/19 14:00 Pulse 91 08/08/19 14:00 Resp 16 08/08/19 14:00 BP 142/74 H 08/08/19 14:00 Pulse Ox 94 L 08/08/19 14:00 Weight - Most Recent: 68.492 kg I&O - Last 24 Hours: Intake & Output 08/07/19 08/08/19 08/08/19 22:59 06:59 14:59 Intake Total 200 520 Balance 200 520 Lab Results Last 24 Hours: Laboratory Results - last 24 hr 08/08/19 08/08/19 08/08/19 Range/Units 04:00 04:00 04:00 WBC 6.3 (4.5-11.0) K/uL RBC 4.31 (4.30-5.90) M/uL Hgb 13.2 (12.0-15.0) g/dL Hct 43.0 (40.0-54.0) % MCV 100 H (80-98) fL MCH 31 (27-31) pg MCHC 31 L (32-36) % Plt Count 170 (150-400) K/uL PT 39.5 H (9.5-12.0) sec INR 3.95 H (0.80-1.20) Sodium 144 (140-148) mmol/L Potassium 4.0 (3.6-5.2) mmol/L Chloride 105 (100-108) mmol/L Carbon Dioxide 35 H (21-32) mmol/L Anion Gap 8.0 (5.0-14.0) mmol/L BUN 23 H (7-18) mg/dL Creatinine 0.7 L (0.8-1.3) mg/dL Est Cr Clr Drug Dosing 74.74 mL/min Estimated GFR (MDRD) > 60 (>60) Glucose 95 (74-106) mg/dL Calcium 8.8 (8.5-10.1) mg/dL Med Orders - Current: Current Medications Acetaminophen (Tylenol) 650 mg PO Q4H PRN PRN Reason: Pain (Mild 1-3)/fever Last Admin: 08/08/19 07:33 Dose: 650 mg Acetaminophen (Tylenol Extra Strength) 1,000 mg PO BEDTIME [facility] Albuterol (Ventolin Hfa) 0 gm INH Q4H PRN PRN Reason: Shortness of Breath Alprazolam (Xanax) 0.25 mg PO DAILY PRN PRN Reason: Anxiety Brimonidine Tartrate (Alphagan 0.2% Ophth Soln) 0 ml EYEBOTH BID [facility] Last Admin: 08/08/19 13:35 Dose: 1 drop Fluticasone Propionate (Flonase) 0 gm NASBOTH DAILY [facility] Last Admin: 08/08/19 08:49 Dose: 1 spray Furosemide (Lasix) 20 mg PO DAILY [facility] Last Admin: 08/08/19 08:48 Dose: 20 mg Latanoprost (Xalatan 0.005% Ophth Soln) 0 ml EYEBOTH BEDTIME JOHN Losartan Potassium (Cozaar) 75 mg PO DAILY [facility] Last Admin: 08/08/19 08:49 Dose: 75 mg Magnesium Hydroxide (Milk Of Magnesia) 30 ml PO Q12H PRN PRN Reason: Constipation Last Admin: 08/08/19 07:34 Dose: 30 ml Melatonin (Melatonin) 9 mg PO BEDTIME [facility] Last Admin: 08/07/19 22:23 Dose: 9 mg Mirtazapine (Remeron) 15 mg PO BEDTIME [facility] Last Admin: 08/08/19 08:46 Dose: Not Given Metoprolol Er 100mg (*Pom*) 0.5 each PO DAILY [facility] Last Admin: 08/08/19 08:47 Dose: 0.5 each Ondansetron HCl (Zofran Odt) 4 mg PO Q6H PRN PRN Reason: Nausea able to take PO Ondansetron HCl (Zofran) 4 mg IV Q6H PRN PRN Reason: Nausea/Vomiting Nexium 20mg Cap ( (Ptom)) 0 each PO ACBREAKFAST [facility] Last Admin: 08/08/19 12:07 Dose: 2 each Senna/Docusate Sodium (Senna Plus) 1 tab PO BID PRN PRN Reason: Constipation Tamsulosin HCl (Flomax) 0.4 mg PO BEDTIME JOHN Discontinued Medications Acetaminophen (Tylenol) 650 mg PO NOW ONE Stop: 08/07/19 06:02 Last Admin: 08/07/19 06:29 Dose: 650 mg Brimonidine Tartrate (Alphagan 0.2% Ophth Soln) 0 ml EYEBOTH BID JOHN Last Admin: 08/08/19 12:13 Dose: 1 drop Latanoprost (Xalatan 0.005% Ophth Soln) 0 ml EYEBOTH QPM JOHN Megestrol Acetate (Megace 40 Mg/Ml Susp) 20 mg PO QID JOHN - Exam Quality Assessment: No: Supplemental Oxygen General: Alert, Cooperative, No Acute Distress HEENT: Pupils Equal Lungs: Normal Respiratory Effort GI/Abdominal Exam: Soft, No Distention Skin: Warm, Dry Neurological: No New Focal Deficit Psy/Mental Status: Alert, Normal Affect - Problem List & Annotations (1) Slurred speech SNOMED Code(s): 455615073 Code(s): R47.81 - SLURRED SPEECH Status: Acute Current Visit: Yes (2) Weakness SNOMED Code(s): 83207173 Code(s): R53.1 - WEAKNESS Status: Resolved Current Visit: No (3) CHF (congestive heart failure) SNOMED Code(s): 12508188 Code(s): I50.9 - HEART FAILURE, UNSPECIFIED Status: Chronic Current Visit : Yes Qualifiers: Heart failure type: combined systolic and diastolic Heart failure chronicity: chronic Qualified Code(s): I50.42 - Chronic combined systolic ( congestive) and diastolic (congestive) heart failure (4) Chronic atrial fibrillation SNOMED Code(s): 575381959 Code(s): I48.2 - CHRONIC ATRIAL FIBRILLATION Status: Chronic Current Visit: No - Problem List Review Problem List Initiated/Reviewed/Updated: Yes - My Orders Last 24 Hours: My Active Orders 08/07/19 21:00 Melatonin 9 mg PO BEDTIME Mirtazapine [Remeron] 15 mg PO BEDTIME 08/08/19 09:00 Fluticasone Propionate [Flonase] 0 gm NASBOTH DAILY Furosemide [Lasix] 20 mg PO DAILY Losartan [Cozaar] 75 mg PO DAILY Non-Formulary Medication [NF Drug] 0.5 each PO DAILY 08/08/19 11:30 Patient's Own Medication [Ptom] 0 each PO ACBREAKFAST 08/08/19 13:00 Brimonidine [Alphagan 0.2% Ophth Soln] 0 ml EYEBOTH BID 08/08/19 21:00 Acetaminophen [Tylenol Extra Strength] 1,000 mg PO BEDTIME Latanoprost [Xalatan 0.005% Ophth Soln] 0 ml EYEBOTH BEDTIME Tamsulosin [Flomax] 0.4 mg PO BEDTIME 08/09/19 05:00 INR,PT,PROTHROMBIN TIME [COAG] Timed - Plan Plan:: ASSESSMENT AND PLAN - Generalized weakness and slurred speech - no evidence for infection, head CT negative. Suspect medication effect. Better today but not back to normal. -Discontinue trazodone -Physical therapy insomnia - trouble falling asleep and trouble staying asleep. Adverse reaction to multiple previous medications. -Trial of mirtazapine at bedtime -melatonin at bedtime -Scheduled Tylenol at bedtime Combined systolic and diastolic congestive heart failure - Appears compensated at this time. He has mildly reduced ejection fraction at 40-45% as well as moderately severe aortic insufficiency and diastolic failure. He has lost more than 50 pounds over 6 months and has been steadily declining. Family is interested in hospice. -Decrease metoprolol to 50 mg daily -Continue furosemide -Hospice referral Chronic atrial fibrillation - He is chronically anticoagulated. INR remains slightly supratherapeutic. He has episodes of bradycardia with heart rates that dropped down into the 40s. -Hold warfarin today and recheck INR in the morning -Decrease beta qamar Maintenance issues - - DVT prophylaxis - warfarin - GI prophylaxis - PPI - Nutrition - heart healthy diet Disposition - I would anticipate discharge home, possibly with home care or possibly with hospice Primary care physician - Dr. Jolanta Bridges M.D.
[2019-08-08] MEDS ORDERED: Latanoprost 0.005% Ophth Soln (PTOM) EYEBOTH SCH (17:00)
[2019-08-08] MEDS: Polyethylene Glycol 3350 Powder 17 GM Packet PO PRN (20:02)
[2019-08-08] MEDS: Latanoprost 0.005% Ophth Soln (PTOM) EYEBOTH SCH (21:13)
[2019-08-08] MEDS: Acetaminophen 500 MG Tab PO SCH (21:14)
[2019-08-08] MEDS: Melatonin 3 MG Tab PO SCH (21:14)
[2019-08-08] MEDS: Tamsulosin 0.4 MG Cap.ER*POM PO SCH (21:15)
[2019-08-09] MEDS: BRIMONIDINE 0.2% EYEBOTH SCH ×2 (09:57→20:33)
[2019-08-09] MEDS: Acetaminophen 325 MG Tab PO PRN (09:58)
[2019-08-09] MEDS: METOPROLOL 100 MG PO SCH (09:59)
[2019-08-09] MEDS: Furosemide 20 MG Tab*POM PO SCH (09:59)
[2019-08-09] MEDS: FLUTICASONE PROPIONATE NASBOTH SCH (10:01)
[2019-08-09] MEDS: NEXIUM 20 MG PO SCH (10:02)
[2019-08-09] MEDS: LOSARTAN 50 MG PO SCH (10:03)
[2019-08-09] MEDS ORDERED: LORazepam 0.5 MG Tab PO PRN (13:49)
--- NOTE | 2019-08-09 13:51 | PCM.PN ---
- General Info Date of Service: 08/09/19 Subjective Update: There were no acute events overnight but the patient slept very little despite medication changes. He is a little bit sleepy today but otherwise stable. Strength seems to be at baseline and he was able to take along walk down the [place]. No complaints of nausea or vomiting. Appetite has been okay. The plan is for hospice admission tomorrow. Functional Status: Reports: Pain Controlled, Tolerating Diet, Ambulating - Review of Systems General: Reports: Weakness Psychiatric: Reports: Confusion - Patient Data Vitals - Most Recent: Last Vital Signs Temp 36.3 C 08/09/19 10:26 Pulse 45 L 08/09/19 10:26 Resp 16 08/09/19 10:26 BP 135/80 08/09/19 10:26 Pulse Ox 91 L 08/09/19 10:26 Weight - Most Recent: 68.492 kg I&O - Last 24 Hours: Intake & Output 08/08/19 08/09/19 08/09/19 22:59 06:59 14:59 Intake Total 480 100 Balance 480 100 Lab Results Last 24 Hours: Laboratory Results - last 24 hr 08/09/19 Range/Units 04:45 PT 30.6 H (9.5-12.0) sec INR 3.02 H (0.80-1.20) Med Orders - Current: Current Medications Acetaminophen (Tylenol) 650 mg PO Q4H PRN PRN Reason: Pain (Mild 1-3)/fever Last Admin: 08/09/19 09:58 Dose: 650 mg Acetaminophen (Tylenol Extra Strength) 1,000 mg PO BEDTIME [facility] Last Admin: 08/08/19 21:14 Dose: 1,000 mg Albuterol (Ventolin Hfa) 0 gm INH Q4H PRN PRN Reason: Shortness of Breath Alprazolam (Xanax) 0.25 mg PO DAILY PRN PRN Reason: Anxiety Brimonidine Tartrate (Alphagan 0.2% Ophth Soln) 0 ml EYEBOTH BID [facility] Last Admin: 08/09/19 09:57 Dose: 1 drop Fluticasone Propionate (Flonase) 0 gm NASBOTH DAILY [facility] Last Admin: 08/09/19 10:01 Dose: 2 spray Furosemide (Lasix) 20 mg PO DAILY [facility] Last Admin: 08/09/19 09:59 Dose: 20 mg Latanoprost (Xalatan 0.005% Ophth Soln) 0 ml EYEBOTH BEDTIME [facility] Last Admin: 08/08/19 21:13 Dose: 1 drop Losartan Potassium (Cozaar) 75 mg PO DAILY [facility] Last Admin: 08/09/19 10:03 Dose: 75 mg Magnesium Hydroxide (Milk Of Magnesia) 30 ml PO Q12H PRN PRN Reason: Constipation Last Admin: 08/08/19 07:34 Dose: 30 ml Melatonin (Melatonin) 9 mg PO BEDTIME [facility] Last Admin: 08/08/19 21:14 Dose: 9 mg Metoprolol Er 100mg (*Pom*) 0.5 each PO DAILY [facility] Last Admin: 08/09/19 09:59 Dose: 0.5 each Ondansetron HCl (Zofran Odt) 4 mg PO Q6H PRN PRN Reason: Nausea able to take PO Ondansetron HCl (Zofran) 4 mg IV Q6H PRN PRN Reason: Nausea/Vomiting Nexium 20mg Cap ( (Ptom)) 0 each PO ACBREAKFAST [facility] Last Admin: 08/09/19 10:02 Dose: 1 each Polyethylene Glycol (Miralax) 17 gm PO BEDTIME PRN PRN Reason: Constipation Last Admin: 08/08/19 20:02 Dose: 17 gm Senna/Docusate Sodium (Senna Plus) 1 tab PO BID PRN PRN Reason: Constipation Tamsulosin HCl (Flomax) 0.4 mg PO BEDTIME [facility] Last Admin: 08/08/19 21:15 Dose: 0.4 mg Discontinued Medications Acetaminophen (Tylenol) 650 mg PO NOW ONE Stop: 08/07/19 06:02 Last Admin: 08/07/19 06:29 Dose: 650 mg Brimonidine Tartrate (Alphagan 0.2% Ophth Soln) 0 ml EYEBOTH BID [facility] Last Admin: 08/08/19 12:13 Dose: 1 drop Latanoprost (Xalatan 0.005% Ophth Soln) 0 ml EYEBOTH QPM [facility] Megestrol Acetate (Megace 40 Mg/Ml Susp) 20 mg PO QID [facility] Last Admin: 08/08/19 16:57 Dose: Not Given Mirtazapine (Remeron) 15 mg PO BEDTIME [facility] Last Admin: 08/08/19 21:14 Dose: 15 mg - Exam Quality Assessment: No: Supplemental Oxygen General: Alert, Cooperative, No Acute Distress Lungs: Normal Respiratory Effort GI/Abdominal Exam: Soft, No Distention Extremities: No Pedal Edema Psy/Mental Status: Alert. No: Agitated - Problem List & Annotations (1) Slurred speech SNOMED Code(s): 891397045 Code(s): R47.81 - SLURRED SPEECH Status: Acute Current Visit: Yes (2) Weakness SNOMED Code(s): 58152116 Code(s): R53.1 - WEAKNESS Status: Resolved Current Visit: No (3) CHF (congestive heart failure) SNOMED Code(s): 79184483 Code(s): I50.9 - HEART FAILURE, UNSPECIFIED Status: Chronic Current Visit : Yes Qualifiers: Heart failure type: combined systolic and diastolic Heart failure chronicity: chronic Qualified Code(s): I50.42 - Chronic combined systolic ( congestive) and diastolic (congestive) heart failure (4) Chronic atrial fibrillation SNOMED Code(s): 641633037 Code(s): I48.2 - CHRONIC ATRIAL FIBRILLATION Status: Chronic Current Visit: No - Problem List Review Problem List Initiated/Reviewed/Updated: Yes - My Orders Last 24 Hours: My Active Orders 08/08/19 13:00 Brimonidine [Alphagan 0.2% Ophth Soln] 0 ml EYEBOTH BID 08/08/19 17:13 Polyethylene Glycol 3350 [MiraLAX] 17 gm PO BEDTIME PRN 08/08/19 21:00 Acetaminophen [Tylenol Extra Strength] 1,000 mg PO BEDTIME Latanoprost [Xalatan 0.005% Ophth Soln] 0 ml EYEBOTH BEDTIME Tamsulosin [Flomax] 0.4 mg PO BEDTIME 08/09/19 13:49 LORazepam [Ativan] 0.5 mg PO BEDTIME PRN 08/09/19 21:00 Ramelteon [Rozerem] 8 mg PO BEDTIME - Plan Plan:: ASSESSMENT AND PLAN - Generalized weakness and slurred speech - no evidence for infection, head CT negative. Still has some slurring of his speech but overall is doing better. -Discontinue trazodone -Physical therapy Insomnia - trouble falling asleep and trouble staying asleep. Slept very little last night. -Trial of ramelteon at bedtime -melatonin at bedtime -Scheduled Tylenol at bedtime Combined systolic and diastolic congestive heart failure - Appears compensated at this time. He has mildly reduced ejection fraction at 40-45% as well as moderately severe aortic insufficiency and diastolic failure. He has lost more than 50 pounds over 6 months and has been steadily declining. Family is planning hospice care after the hospital stay. -Decrease metoprolol to 50 mg daily -Continue furosemide -Hospice referral and admission tomorrow Chronic atrial fibrillation - He is chronically anticoagulated. INR remains slightly supratherapeutic. He has episodes of bradycardia with heart rates that dropped down into the 40s. -Hold warfarin today and recheck INR in the morning -Decrease beta qamar Maintenance issues - - DVT prophylaxis - warfarin - GI prophylaxis - PPI - Nutrition - heart healthy diet Disposition - I would anticipate discharge home with hospice tomorrow Primary care physician - Dr. Jolanta Bridges M.D.
[2019-08-09] MEDS: Latanoprost 0.005% Ophth Soln (PTOM) EYEBOTH SCH (20:35)
[2019-08-09] MEDS: Tamsulosin 0.4 MG Cap.ER*POM PO SCH (20:37)
[2019-08-09] MEDS: Acetaminophen 500 MG Tab PO SCH (20:37)
[2019-08-09] MEDS: Melatonin 3 MG Tab PO SCH (20:37)
[2019-08-09] MEDS: Polyethylene Glycol 3350 Powder 17 GM Packet PO PRN (20:43)
[2019-08-10] MEDS: NEXIUM 20 MG PO SCH (09:16)
[2019-08-10] MEDS: FLUTICASONE PROPIONATE NASBOTH SCH (09:31)
[2019-08-10] MEDS: Furosemide 20 MG Tab*POM PO SCH (09:32)
[2019-08-10] MEDS: LOSARTAN 50 MG PO SCH (09:32)
[2019-08-10] MEDS: BRIMONIDINE 0.2% EYEBOTH SCH (09:33)
[2019-08-10] MEDS: METOPROLOL 100 MG PO SCH (09:34)
[2019-08-10 11:05] VITALS: BP 96/50; PULSE 58
--- NOTE | 2019-08-10 12:52 | PCM.DCSUM1 ---
Discharge Summary - Hospital Course Brief History: 84-year-old male with history of paroxysmal atrial fibrillation, chronic pain and mild dementia who presented with weakness and slurred speech as well as lethargy. He was admitted for observation with further workup and potentially management. Diagnosis: Stroke: No - Discharge Data Discharge Date: 08/10/19 Discharge Disposition: DC/Tfer to Hospice - Home 50 Condition: Stable - Referral to Home Health Primary Care Physician: PCP None - Discharge Diagnosis/Problem(s) (1) Slurred speech SNOMED Code(s): 102295970 ICD Code: R47.81 - SLURRED SPEECH Status: Acute (2) Weakness SNOMED Code(s): 77398154 ICD Code: R53.1 - WEAKNESS Status: Resolved (3) CHF (congestive heart failure) SNOMED Code(s): 50843166 ICD Code: I50.9 - HEART FAILURE, UNSPECIFIED Status: Chronic Qualifiers: Heart failure type: combined systolic and diastolic Heart failure chronicity: chronic Qualified Code(s): I50.42 - Chronic combined systolic ( congestive) and diastolic (congestive) heart failure (4) Chronic atrial fibrillation SNOMED Code(s): 906544940 ICD Code: I48.2 - CHRONIC ATRIAL FIBRILLATION Status: Chronic - Patient Summary/Data Consults: Consultations 08/07/19 11:26 PT Evaluation and Treatment [CONS] Routine Please Evaluate and Treat. PT Reason for Consult: Strengthening This query below is only for informational purposes and is not editable. Hospital Course: Art presented to the emergency room by ambulance after he was extremely weak, more confused than usual and had slurred speech. Workup in the emergency room included laboratory studies and a CAT scan of the brain. There is no evidence for stroke noted on the CT scan. Laboratory studies were fairly unremarkable. He was admitted for observation and further workup. Discussions were held with his significant other of 12 years. There was consideration for hospice given his significant weight loss in recent months as well as recent development of congestive heart failure. Patient has been steadily declining. Recent issues have included difficulty sleeping over the past few weeks. He often falls asleep but does not stay asleep for more than a matter of minutes. This is providing fair amount of burden on his caregiver because she's not sleeping well either. His hospital stay was fairly uneventful. He does continue to have some slurred speech but does not have any other neurological deficits. We tried several different medications to help with his sleep. We did have some walk with a combination of Tylenol, melatonin and ramelteon. Further discussions were held with the patient, his significant other Carlotta and his daughter Francoise. We have elected to transition to comfort care with hospice. We did review his echocardiogram which was obtained the day before admission. This showed moderately severe aortic insufficiency, reduced ejection fraction at 40-45% as well as mitral insufficiency. The patient and significant other were not interested in aggressive intervention as they feel this would be too hard on him in his current state. They're concerned about his weight loss and have come to the realization that he may be failing and heading towards end-of-life care. They are agreeable to try hospice at home. Carlotta is hoping that she can find some resources to help at night to give her a little bit of a break. She is concerned that we may need to transition to a skilled facility if she's not able to handle 44 hour care. - Patient Instructions Diet: Heart Healthy Diet Activity: As Tolerated Other/Special Instructions: Referral to Hospice care at home - Discharge Plan *PRESCRIPTION DRUG MONITORING PROGRAM REVIEWED*: Not Applicable *COPY OF PRESCRIPTION DRUG MONITORING REPORT IN PATIENT BARBIE: Not Applicable Prescriptions/Med Rec: Acetaminophen [Tylenol Extra Strength] 1,000 mg PO BEDTIME #180 tablet Metoprolol Succinate 50 mg PO DAILY #30 tab.er.24h Ramelteon [Rozerem] 8 mg PO BEDTIME #30 tablet Warfarin Sodium [Coumadin] 3 mg PO DAILY #30 tablet Home Medications: Home Meds ALPRAZolam [Alprazolam] 0.25 mg PO DAILY 04/23/17 [History] Losartan [Cozaar] 75 mg PO DAILY 04/23/17 [History] Albuterol Sulfate [Proair Hfa] 1 - 2 puff IH Q4H PRN 08/17/18 [History] Polyethylene Glycol 3350 [MiraLAX] 17 gm PO ASDIRECTED PRN 08/17/18 [History] Tamsulosin HCl [Flomax] 0.4 mg PO DAILY 08/17/18 [History] Brimonidine [Alphagan 0.2% Ophth Soln] 1 drop EYEBOTH BID 05/01/19 [History] Latanoprost 1 drop EYEBOTH BEDTIME 05/01/19 [History] Saliva Stimulant Comb. No.7 [Biotene Oralbalance] 42 gm MM TID 30 Days #100 gel..gram. 07/01/19 [Rx] Saliva Substitution Combo No.9 [Biotene Pbf] 1,000 ml MM Q2HR PRN 30 Days #1 bottle 07/01/19 [Rx] Lidocaine 1 each TP ASDIRECTED 08/05/19 [History] Simethicone 40 mg PO ASDIRECTED 08/05/19 [History] Furosemide 20 mg PO DAILY 08/07/19 [History] Acetaminophen [Tylenol Extra Strength] 1,000 mg PO BEDTIME #180 tablet 08/10/19 [Rx] Melatonin 10 mg PO BEDTIME #0 08/10/19 [Rx] Metoprolol Succinate 50 mg PO DAILY #30 tab.er.24h 08/10/19 [Rx] Ramelteon [Rozerem] 8 mg PO BEDTIME #30 tablet 08/10/19 [Rx] Warfarin Sodium [Coumadin] 3 mg PO DAILY #30 tablet 08/10/19 [Rx] Oxygen Therapy Mode: Room Air Referrals: PCP,None [Primary Care Provider] - - Discharge Summary/Plan Comment DC Time >30 min.: Yes (40 - coordinating hospice care ) - Patient Data Vitals - Most Recent: Last Vital Signs Temp 36.1 C 08/10/19 11:00 Pulse 58 L 08/10/19 11:00 Resp 16 08/10/19 11:00 BP 96/50 L 08/10/19 11:00 Pulse Ox 95 08/10/19 11:00 Weight - Most Recent: 68.492 kg I&O - Last 24 hours: Intake & Output 08/09/19 08/10/19 08/10/19 22:59 06:59 14:59 Intake Total 420 300 Output Total 100 Balance 320 300 Med Orders - Current: Current Medications Acetaminophen (Tylenol) 650 mg PO Q4H PRN PRN Reason: Pain (Mild 1-3)/fever Last Admin: 08/09/19 09:58 Dose: 650 mg Acetaminophen (Tylenol Extra Strength) 1,000 mg PO BEDTIME [facility] Last Admin: 08/09/19 20:37 Dose: 1,000 mg Albuterol (Ventolin Hfa) 0 gm INH Q4H PRN PRN Reason: Shortness of Breath Alprazolam (Xanax) 0.25 mg PO DAILY PRN PRN Reason: Anxiety Brimonidine Tartrate (Alphagan 0.2% Ophth Soln) 0 ml EYEBOTH BID [facility] Last Admin: 08/10/19 09:33 Dose: 1 drop Fluticasone Propionate (Flonase) 0 gm NASBOTH DAILY [facility] Last Admin: 08/10/19 09:31 Dose: 2 spray Furosemide (Lasix) 20 mg PO DAILY [facility] [place] Last Admin: 08/10/19 09:32 Dose: 20 mg Latanoprost (Xalatan 0.005% Ophth Soln) 0 ml EYEBOTH BEDTIME [facility] [place] Last Admin: 08/09/19 20:35 Dose: 1 drop Lorazepam (Ativan) 0.5 mg PO BEDTIME PRN PRN Reason: Sleep Last Admin: 08/10/19 01:25 Dose: 0.5 mg Losartan Potassium (Cozaar) 75 mg PO DAILY [facility] [place] Last Admin: 08/10/19 09:32 Dose: 75 mg Magnesium Hydroxide (Milk Of Magnesia) 30 ml PO Q12H PRN PRN Reason: Constipation Last Admin: 08/08/19 07:34 Dose: 30 ml Melatonin (Melatonin) 9 mg PO BEDTIME [facility] [place] Last Admin: 08/09/19 20:37 Dose: 9 mg Metoprolol Er 100mg (*Pom*) 0.5 each PO DAILY [facility] [place] Last Admin: 08/10/19 09:34 Dose: 0.5 each Ondansetron HCl (Zofran Odt) 4 mg PO Q6H PRN PRN Reason: Nausea able to take PO Ondansetron HCl (Zofran) 4 mg IV Q6H PRN PRN Reason: Nausea/Vomiting Nexium 20mg Cap ( (Ptom)) 0 each PO ACBREAKFAST [facility] [place] Last Admin: 08/10/19 09:16 Dose: 1 each Polyethylene Glycol (Miralax) 17 gm PO BEDTIME PRN PRN Reason: Constipation Last Admin: 08/09/19 20:43 Dose: 17 gm Ramelteon (Rozerem) 8 mg PO BEDTIME [facility] [place] Last Admin: 08/09/19 20:37 Dose: 8 mg Senna/Docusate Sodium (Senna Plus) 1 tab PO BID PRN PRN Reason: Constipation Tamsulosin HCl (Flomax) 0.4 mg PO BEDTIME [facility] [place] Last Admin: 08/09/19 20:37 Dose: 0.4 mg Discontinued Medications Acetaminophen (Tylenol) 650 mg PO NOW ONE Stop: 08/07/19 06:02 Last Admin: 08/07/19 06:29 Dose: 650 mg Brimonidine Tartrate (Alphagan 0.2% Ophth Soln) 0 ml EYEBOTH BID [facility] Last Admin: 08/08/19 12:13 Dose: 1 drop Latanoprost (Xalatan 0.005% Ophth Soln) 0 ml EYEBOTH QPM [facility] Megestrol Acetate (Megace 40 Mg/Ml Susp) 20 mg PO QID [facility] [place] Last Admin: 08/08/19 16:57 Dose: Not Given Mirtazapine (Remeron) 15 mg PO BEDTIME [facility] [place] Last Admin: 08/08/19 21:14 Dose: 15 mg - Exam Quality Assessment: Denies: Supplemental Oxygen General: Reports: Alert, Cooperative, No Acute Distress, Lethargic Lungs: Reports: Normal Respiratory Effort Cardiovascular: Reports: Regular Rate, Irregular Rhythm GI/Abdominal Exam: Soft, No Distention Extremities: No Pedal Edema Psy/Mental Status: Reports: Alert. Denies: Agitated
== END 2019-08-10 13:41 | disposition hospice, home (50) ==
LOC: JP.ED 03:49 → JP.MS 10:54
PROVIDERS: ADMIT Internal Medicine; ATTEND Internal Medicine
DX: R53.1 Weakness (principal); R47.81 Slurred speech; I11.0 Hypertensive heart disease with heart failure; I50.42 Chronic combined systolic (congestive) and diastolic (congestive) heart failure; I48.2 Chronic atrial fibrillation; E78.00 Pure hypercholesterolemia, unspecified; N40.0 Benign prostatic hyperplasia without lower urinary tract symptoms; M19.90 Unspecified osteoarthritis, unspecified site; Z88.8 Allergy status to other drugs, medicaments and biological substances; Z88.5 Allergy status to narcotic agent; Z79.899 Other long term (current) drug therapy; Z79.01 Long term (current) use of anticoagulants
CPT/HCPCS: 36415; 70450; 80048; 85025; 85027; 85610; 97110; 97162; 97530; 99284; 99285; A9270; G0378